=== PATIENT | female | born 1985 | race African-American/Black ===

== ENCOUNTER 2021-11-09 15:24 | Emergency (ER) | payer MEDICAID, SELFPAY ==
[2021-11-09 16:01] VITALS: BP 111/63; PULSE 76; TEMP 36.6; O2SAT 100; BMI 20.8
--- NOTE | 2021-11-09 19:39 | ED.SKABFB ---
HPI - Skin/Abscess/Foreign Bdy General Chief complaint: Skin/Abscess/Foreign Body Stated complaint: Skin grown over stitch right ear Time Seen by Provider: 11/09/21 18:21 History of Present Illness HPI narrative: This 36-year-old female comes in with a lump on the upper aspect of her right ear. She states that she had a stitch placed there to repair an injury a few months ago and since then has developed a lump causing her to wonder if the stitches still lodged in her ear and skin has grown over it. She does not have much pain in this area. She is otherwise in good health. Related Data Home Medications Medication Instructions Recorded Confirmed dextroamphetamine-amphetamine ER cap PO 09/08/21 09/08/21 15 mg 24hr capsule,extend release (Adderall XR) sertraline 100 mg tablet 100 mg PO 09/08/21 09/08/21 Previous Rx's Medication Instructions Recorded doxycycline hyclate 100 mg tablet 200 mg PO ONCE #2 tabs 09/08/21 triamcinolone acetonide 0.1 % 1 applic topical BID #15 grams 11/09/21 topical cream Allergies Allergy/AdvReac Type Severity Reaction Status Date / Time No Known Drug Allergies Allergy Verified 11/09/21 16:00 Review of Systems Status of ROS: Reports: 10 or more systems reviewed and unremarkable except as noted in History and below Narrative: Constitutional: No fevers, no weight gain or loss. Eyes: No discharge. No vision changes. HENT: No congestion, no sore throat. Swelling in the right upper external here as described above. Cardiovascular: No chest pain, no palpitations. Respiratory: No shortness of breath, no wheezes, no cough. Gastrointestinal: No abdominal pain, no vomiting, no diarrhea. Genitourinary: No dysuria, no hematuria. Musculoskeletal: Normal range of motion. Skin: No rashes, no pruritis. Neurological: No dizziness, weakness, sensory change, speech change. Endo/Heme/Allergies: No bruising or bleeding. No polydipsia. Pysch: no suicidality, no anxiety, no insomnia. All other systems reviewed and are negative. PFSH PFS Social History Smoking Status: Never smoker Do you use any of these nicotine containing products: None Second hand tobacco smoke exposure: No How often do you have a drink containing alcohol: 2-4 times a month How many standard drinks containing alcohol do you have on a typical day: 3 or 4 How often do you have six or more drinks on one occasion: Less than monthly AUDIT-C Alcohol total score: 4 Non-prescribed substance use: denies use service: No Exam Narrative: Exam Narrative: Constitutional: Well-developed, well-nourished, no acute distress. HEENT: Normocephalic, atraumatic. Small round palpable swelling in the upper aspect of the right ear. This is distinctly different than the cartilaginous part of the ear. Neck: Normal range of motion. Nontender. Supple. Heart: Intact distal pulses. Lungs: No chest discomfort. No wheezes, rhonchi, or rales. Abdomen: Nontender. Back: Normal range of motion. Extremities: Normal range of motion. No injury. Skin: Intact. No rash. Warm. No erythema or pallor. Neurologic: No altered sensation. No weakness. Alert and oriented. Psychiatric: No suicidality. No anxiety or depression. No insomnia. Nursing notes and vitals signs are reviewed. Const: Vital Signs, click to edit/add: Vital Signs - 24 hr 11/09/21 16:01 Temperature 97.8 F Pulse Rate [Pulse Oximeter] 76 Blood Pressure [Ri ght Upper Arm] 111/63 Pulse Oximetry 100 Oxygen Delivery Me thod Room Air Course Vital Signs Vital signs: Initial Vital Signs Temperature 97.8 F 11/09/21 16:01 Temperature Source Temporal Artery Scan 11/09/21 16:01 Pulse Rate 76 11/09/21 16:01 Pulse Rhythm 11/09/21 16:01 Blood Pressure 111/63 11/09/21 16:01 Blood Pressure Mean 79 11/09/21 16:01 Blood Pressure Position Sitting 11/09/21 16:01 Pulse Oximetry 100 11/09/21 16:01 Oxygen Delivery Method 11/09/21 16:01 Vital Signs Temperature 97.8 F 11/09/21 16:01 Pulse Rate 76 11/09/21 16:01 Blood Pressure 111/63 11/09/21 16:01 Pulse Oximetry 100 11/09/21 16:01 Oxygen Delivery Method 11/09/21 16:01 Temperature 97.8 F 11/09/21 16:01 Pulse Rate 76 11/09/21 16:01 Blood Pressure 111/63 11/09/21 16:01 Pulse Oximetry 100 11/09/21 16:01 Oxygen Delivery Method 11/09/21 16:01 MDM - Skin/Abscess/Foreign Bdy MDM Narrative Medical decision making narrative: This patient has a swelling in her right upper ear that is about half a cm in diameter and easily palpable with a well-defined border. And there is no sign of abscess. This is not particularly tender when palpating this area. There is no erythema. The the patient states that this bothers her and sometimes causes discomfort when sleeping with the right side of her head on a pillow. I stated that it seems to feel like a caseating granuloma or some kind of inclusion cyst. She wished to have it removed if possible. I did cleanse area with alcohol and then injected 1% lidocaine with epinephrine for anesthesia. Using a 11. Blade I did open this part of her ear. There was no fluid retention or capsulated structure. Rather it was like adipose tissue possibly in reaction to her previous injury. I was able to excise some of this tissue without disturbing the ear cartilage. I closed the wound with 2 sutures using 6.0 Ethilon suture. I instructed the patient to have those 2 sutures removed in 5-7 days. It seems that this is more likely a keloid reaction or some other kind of reaction to her previous injury. I did prescribe triamcinolone cream to be applied after the sutures are removed and the wound is healed. This may help decrease the prominence of this area of her ear. If this is not successful or satisfactory I advised her to follow-up with a plastic surgeon for further evaluation and treatment. Discharge Plan Discharge Clinical Impression: Auricular cyst Patient Disposition: Home, Self-Care Condition: Stable Additional Instructions: Have sutures removed in 5-7 days. Apply triamcinolone cream to this part of your right ear after the wound is healed. Follow up with MD or specialist to further management is desired. Prescriptions: New triamcinolone acetonide 0.1 % cream 1 applic topical BID Qty: 15 0RF No Action sertraline 100 mg tablet 100 mg PO dextroamphetamine-amphetamine [Adderall XR] 15 mg capsule,extended release 24hr PO doxycycline hyclate 100 mg tablet 200 mg PO ONCE Qty: 2 0RF Follow Up/Referrals: Provider,Not a Local [Primary Care Provider] - Stand Alone Forms: [facility] Info Instructions
[2021-11-09 19:53] VITALS: BP 117/74; RESP 20; O2SAT 99
== END 2021-11-09 19:54 | disposition home or self-care (01) ==
PROVIDERS: Emergency Provider Emergency Medicine Emergency Medical Services
DX: Q18.1 Preauricular sinus and cyst (principal)
CPT/HCPCS: 10060; 99283; 99284

== ENCOUNTER 2021-11-17 17:20 | Emergency (ER) | payer MEDICAID, SELFPAY ==
[2021-11-17 17:36] VITALS: BP 114/75; PULSE 72; RESP 18; TEMP 36.2; O2SAT 100; BMI 23.4
--- NOTE | 2021-11-17 17:57 | ED.NURSE ---
Pt elects to not be seen by MD. Refusal of services signed. Pt leaves ED ambulatory, tolerates well.
--- NOTE | 2021-11-17 18:03 | PC.NURSE ---
Spoke with mom of patient. She was upset that she would get charged ED prices for the removal of the sutures. I explained that if the procedure is done in the ED, then a provider will need to assess and order the suture removal. Since ED services were used, then ED charges will be documented. Mom verbalized understanding. They opted for refusal of services. Refusal of services form was signed. Patient was given Patient advocate phone number. Patient ambulated out of ED without diffuculty.
== END 2021-11-17 18:10 | disposition left against medical advice (07) ==
LOC: ED 18:04
DX: Z53.21 Procedure and treatment not carried out due to patient leaving prior to being seen by health care provider (principal)
CPT/HCPCS: 99281

== ENCOUNTER 2022-04-26 13:04 | Outpatient (CLI) | payer MEDICAID, SELFPAY ==
--- NOTE | 2022-04-26 13:00 | CRLHL7_ITS ---
For Patients: As a result of the Century Cures Act, medical imaging exams and procedure reports are released immediately into your electronic medical record. You may view this report before your referring provider. If you have questions, please contact your health care provider. Indication: Headache. Technique: Multiplanar, multisequence MRI of the brain was performed without intravenous contrast. Comparison: None relevant available. Findings: The corpus callosum, optic chiasm, pituitary gland, clivus, brainstem and cerebellum appear intact. The craniocervical junction appears preserved. There is no restricted diffusion. No intracranial hemorrhage. The ventricles are proportionate to the cerebral sulci. The 4th ventricle appears midline. The basal cisterns appear patent. No abnormal extra-axial fluid collection identified. Single nonspecific focus of T2 FLAIR hyperintensity within the right frontal white matter. There is no intracranial mass, abnormal mass-effect or midline shift identified. Major intracranial vascular flow voids appear grossly intact. Both globes are preserved. Moderate paranasal sinus mucosal disease. Impression: 1. No acute intracranial process. 2. Single nonspecific focus of T2 FLAIR hyperintensity within the right frontal white matter. Differential considerations include sequela of migraine headaches. 3. Moderate paranasal sinus mucosal disease. Dictated by Hernando Garcia MD @ 04/26/2022 3:52:08 PM (Electronically Signed)
== END 2022-04-26 13:05 | disposition home or self-care (01) ==
PROVIDERS: PCP Family Medicine; Visit Provider Family Medicine
DX: R51.9 Headache, unspecified (principal); J32.9 Chronic sinusitis, unspecified
CPT/HCPCS: 70551

== ENCOUNTER 2022-10-02 23:56 | Emergency (ER) | payer SELFPAY ==
[2022-10-03] VITALS: BP 109/74; PULSE 96; RESP 18; TEMP 36.3; O2SAT 97; BMI 25.4
[2022-10-03] MEDS: hydrOXYzine pamoate 25 MG CAPSULE 50 MG PO (00:30)
[2022-10-03] MEDS: ONDANSETRON ODT 4 MG TAB PO (00:30)
--- NOTE | 2022-10-03 00:31 | ED_ITS ---
HPI - General Adult General Chief complaint: Nausea/Vomiting Stated complaint: Vomit Time Seen by Provider: 10/02/22 23:57 Source: patient Mode of arrival: ambulatory Limitations: no limitations History of Present Illness HPI narrative: 37-year-old female presents the emergency department after smoking marijuana and having unintended side effects. She reports that she smoked approximately 1 hour prior to arrival. After she went home, she went to take a shower and started feeling nauseated, did vomit x1. She is feeling anxious and generally weak. No focal neurological symptoms. she reports that she does smoke on a regular basis and has never had this adverse effect. She notes no breathing difficulty, no vision change, no speech deficits, no difficulty walking. She is concerned that the marijuana was laced with something. Friend accompanies her today. She has no history of seizure disorder. She denies . She has not tried other medications to help counteract her symptoms. Denies ingestion of other drugs tonight. Past medical history noted in EMR. Home medications notable for antidepressant and Adderall. No known drug allergies. Marijuana use as described above. ROS is notable for the generalized and GI symptoms as above, otherwise no specific fevers, respiratory, cardiac, neurological, skin or musculoskeletal changes. Related Data Home Medications Medication Instructions Recorded Confirmed dextroamphetamine-amphetamine ER cap PO 09/08/21 04/18/22 15 mg 24hr capsule,extend release (Adderall XR) sertraline 100 mg tablet 100 mg PO 09/08/21 04/18/22 paroxetine HCl 30 mg tablet (Paxil) 30 mg PO DAILY 10/03/22 10/03/22 Allergies Allergy/AdvReac Type Severity Reaction Status Date / Time No Known Drug Allergies Allergy Verified 04/17/22 13:10 [facility] Surgical History History of nasal polypectomy ?Z98.890 - Other specified postprocedural states (ICD-10) ?Z87.09 - Personal history of other diseases of the respiratory system (ICD- 10) Social History Smoking Status: Never smoker Do you use any of these nicotine containing products: None Second hand tobacco smoke exposure: No How often do you have a drink containing alcohol: 2-4 times a month How many standard drinks containing alcohol do you have on a typical day: 3 or 4 How often do you have six or more drinks on one occasion: Less than monthly AUDIT-C Alcohol total score: 4 Non-prescribed substance use: denies use Little interest or pleasure in doing things: several days Feeling down, depressed, or hopeless: more than half the days service: No Exam Const: Vital Signs, click to edit/add: Vital Signs - 24 hr 10/03/ 00:00 Temperature 97.4 F L Pulse Rate [Right Pulse Oximeter] 96 Respiratory Rate 18 Blood Pressure [Ri ght Upper Arm] 109/74 Pulse Oximetry 97 Oxygen Delivery Me thod Room Air Documenting provider has reviewed patient's vital signs: yes Common normals: no apparent distress General appearance: cooperative Other: Mildly anxious but excellent historian. Speaking in full sentences with no deficits. HENMT: Common normals: normocephalic and head/scalp atraumatic Head and scalp: normocephalic and atraumatic Mouth: oral and palatal mucosa normal Throat: posterior oropharynx normal Eye: Common normals: conjunctivae normal General eye: normal appearance of both eyes Conjunctiva: conjunctiva(e) normal Other: Pupils equal, normal visual gaze and tracking. Resp: Common normals: normal respiratory effort, no use of accessory muscles and clear to auscultation bilaterally Effort & inspection: able to speak in complete sentences Auscultation: clear to auscultation bilaterally Cardio: Common normals: regular rate, regular rhythm, S1 normal heart sound, S2 normal heart sound and no murmurs Rate: regular rate Rhythm: regular rhythm Heart sounds: S1 normal and S2 normal GI: Common normals: Normal to inspection, nondistended, normoactive bowel sounds present and soft to palpation Palpation: soft Other: No hepatosplenomegaly Extremity: Common normals: normal to inspection and normal capillary refill Neuro: Speech: speech normal Gait (neuro): normal gait ( observed ambulating into exam room) Motor exam: strength 5/5 throughout, no tremor noted and no movement abnormalities noted Psych: Attitude: engaged Insight: insight good Judgement: judgment good Skin: Common normals: no rashes or lesions noted General skin exam: no rashes or lesions noted Course Course Hospital Course: no evidence of respiratory suppression, neurological deficit, altered mental status. Suspect side effects from marijuana. Counseled patient that unfortunately there is no way to tell if her marijuana was laced. Limitations of drug screens unfortunately do not detect the typical culprits in her symptoms are not consistent with opiate or other potentially dangerous and respiratory suppressing medications. At over 90 minutes post ingestion now, we would be seeing the peak of these agents. Even though her experience with this drug has been unpleasant, there are no signs of any immediate threat to her health. She asks for IV fluids, I let her know that these would not be helpful as her liver and kidney simply need to process the drug. She asked for stronger antianxiety medications when I offered Vistaril and Zofran. I let her know that I am not comfortable with that. Her symptoms should ban in a few hours and even though they are uncomfortable, are not dangerous. She can reconsider her relationship with marijuana in the future based on this experience. She disappoint only accepts my offer for Vistaril and Zofran and will be discharged from the emergency department. No further monitoring will be required. Vital Signs Vital signs: Initial Vital Signs Temperature 97.4 F L 10/03/22 00:00 Temperature Source Temporal Artery Scan 10/03/22 00:00 Pulse Rate 96 10/03/22 00:00 Respiratory Rate 18 10/03/22 00:00 Blood Pressure 109/74 10/03/22 00:00 Blood Pressure Mean 85 10/03/22 00:00 Blood Pressure Position Sitting 10/03/22 00:00 Pulse Oximetry 97 10/03/22 00:00 Oxygen Delivery Method Room Air 10/03/22 00:00 Vital Signs Temperature 97.4 F L 10/03/22 00:00 Pulse Rate 96 10/03/22 00:00 Respiratory Rate 18 10/03/22 00:00 Blood Pressure 109/74 10/03/22 00:00 Pulse Oximetry 97 10/03/22 00:00 Oxygen Delivery Method Room Air 10/03/22 00:00 Temperature 97.4 F L 10/03/22 00:00 Pulse Rate 96 10/03/22 00:00 Respiratory Rate 18 10/03/22 00:00 Blood Pressure 109/74 10/03/22 00:00 Pulse Oximetry 97 10/03/22 00:00 Oxygen Delivery Method Room Air 10/03/22 00:00 Discharge Plan Discharge Clinical Impression: Drug side effects Patient Disposition: Home w/ Parent or Adult Condition: Stable Instructions: Medicinal Use of Cannabis (ED) Additional Instructions: as we discussed, there is no way to test for the common medications that marijuana can be laced with. the limitations of drug screens only look for opiates, methamphetamines, cocaine and very few other drugs. Since it has been 90 minutes since ingestion, any potential unintended drug ingestion would be showing up in your vital signs, oxygen levels and those types of things right now. You are not at risk of stopping breathing or any emergent threats to your health at this point. Unfortunately, marijuana can very significantly in concentration of not does teach see but the other chemicals that it may contain. Sometimes the effects can be mellow wing, sedating and pleasurable but sometimes they can be anxiety provoking, nauseating and over stimulating. As discussed, there is no way to test for the chemical components of the product that you smoked. For most, symptoms start to improve after 4 hours and her out of your system in 8-12 hours. Your liver and kidneys will convert and excrete the drug, no additional medications will help speed this process. To counteract the nausea and vomiting, you have been given a single dose of Zofran, a common anti nausea medication. This will last about 8 hours. You have also been given a dose of Vistaril, a common antianxiety medication. This will not have any adverse effects with any potential unintended ingestions on your part. I cannot predict your future reactions to marijuana based on this episode. If you have persistent symptoms, I would recommend making a follow-up appointment with your primary care doctor to discuss long-term management. you may return to work with no restrictions at this time. Activity Level: No Restrictions Discharge Diet: Regular Prescriptions: No Action sertraline 100 mg tablet 100 mg PO dextroamphetamine-amphetamine [Adderall XR] 15 mg capsule,extended release 24hr PO paroxetine HCl [Paxil] 30 mg tablet 30 mg PO DAILY Follow Up/Referrals: Marcelo Moser MD [Primary Care Provider] - Stand Alone Forms: [employer] Info Instructions
--- NOTE | 2022-10-03 00:48 | PC.NURSE ---
patient DC accompanied by friend/line haul driver. no further questions.
== END 2022-10-03 00:48 | disposition home or self-care (01) ==
LOC: ED 10-03 00:43
PROVIDERS: Emergency Provider Family Medicine; PCP Family Medicine
DX: R11.2 Nausea with vomiting, unspecified (principal); T40.715A Adverse effect of cannabis, initial encounter
CPT/HCPCS: 99282; 99283; A9270

== ENCOUNTER 2023-03-20 16:13 | Outpatient (CLI) | payer MEDICAID, SELFPAY | END 2023-03-20 16:14 | disposition home or self-care (01) | LOC: NFLDREF 03-22 09:13 | PROVIDERS: PCP Family Medicine; Referring Provider Family Medicine; Visit Provider Physician Assistant | DX: R30.0 Dysuria (principal); R10.9 Unspecified abdominal pain | CPT/HCPCS: 87086 ==

== ENCOUNTER 2023-10-15 03:28 | Emergency (ER) | payer MEDICAID, SELFPAY ==
[2023-10-15 03:34] VITALS: BP 119/80; PULSE 73; RESP 16; TEMP 37.1; O2SAT 98; BMI 29.2
--- NOTE | 2023-10-15 03:39 | ED_ITS ---
HPI - General Adult General Chief complaint: Abdominal Pain Stated complaint: Abdominal pain Time Seen by Provider: 10/15/23 03:39 History of Present Illness HPI narrative: Pt states she has had lower right abd pain for a week, tonight it is hard to sleep 38-year-old woman presenting to the emergency department with complaint of crampy pulsing pain in the lower right abdomen. Demonstrates that it radiates little bit into the right flank. Has been on and off over the last week. Got worse today/this evening. She has been experiencing urinary frequency. Does not endorse dysuria. She does feel that she is emptying her bladder. No fever. Incidentally has also had an itchy rash near this area of discomfort over the last couple of days. Has had chickenpox. She has been rather bloated lately. Does endorse a history of maybe some food sensitivities or allergies in this regard. No noted exposures. She does have irregular bowel movements and would tend to constipation but does not seem as though anything is particularly out of the ordinary here. Last bowel movement was yesterday. Sounds like was rather well formed. Does also note a history of ovarian cyst and was told to keep an eye on it; this was a long time ago. Is unsure when her LMP was but would be expecting her menses maybe in 2 weeks. She mentions concern of appendicitis or maybe a bowel obstruction. She has not had any nausea or experiencing vomiting. Related Data Home Medications ?Medication ?Instructions ?Recorded ?Confirmed paroxetine HCl 30 mg tablet (Paxil) 30 mg PO DAILY 10/03/22 10/03/22 Allergies Allergy/AdvReac Type Severity Reaction Status Date / Time No Known Drug Allergies Allergy Verified 10/15/23 03:36 Review of Systems Status of ROS: Reports: 6 or more systems reviewed and unremarkable except as noted in History and below PFSH PFS Surgical History History of nasal polypectomy ?Z98.890 - Other specified postprocedural states (ICD-10) ?Z87.09 - Personal history of other diseases of the respiratory system (ICD- 10) Social History Smoking Status: Never smoker Do you use any of these nicotine containing products: None Second hand tobacco smoke exposure: No How often do you have a drink containing alcohol: 2-4 times a month How many standard drinks containing alcohol do you have on a typical day: 3 or 4 How often do you have six or more drinks on one occasion: Less than monthly AUDIT-C Alcohol total score: 4 Non-prescribed substance use: marijuana (any form) Little interest or pleasure in doing things: several days Feeling down, depressed, or hopeless: more than half the days service: No Exam Narrative: Exam Narrative: Pleasant. NAD. Noted to be ambulating easily into the emergency department. She is breathing easily. Lungs appear to be clear. Heart is in regular rate and rhythm without murmur rub or gallop. Abdomen is soft, a little overweight, and not particularly tender. No mass appreciated. Normal bowel sounds. Palm sized area of irregular faint erythema in the right lower abdomen. No blistering. No lesions/rash on the back. Extremities are without edema and well-perfused. Continues to scratch at this right low abdominal rash. Const: Vital Signs, click to edit/add: Vital Signs - 24 hr 10/15/23 03:34 Temperature 98.7 F Pulse Rate [Right Pulse Oximeter] 73 Respiratory Rate 16 Blood Pressure [Ri ght Upper Arm] 119/80 Pulse Oximetry 98 Oxygen Delivery Me thod Room Air Documenting provider has reviewed patient's vital signs: yes Course Vital Signs Vital signs: Initial Vital Signs Temperature 98.7 F 10/15/23 03:34 Temperature Source Temporal Artery Scan 10/15/23 03:34 Pulse Rate 73 10/15/23 03:34 Pulse Rhythm Regular 10/15/23 03:34 Pulse Strength 3+ Normal 10/15/23 03:34 Respiratory Rate 16 10/15/23 03:34 Blood Pressure 119/80 10/15/23 03:34 Blood Pressure Mean 93 10/15/23 03:34 Blood Pressure Position Sitting 10/15/23 03:34 Pulse Oximetry 98 10/15/23 03:34 Oxygen Delivery Method Room Air 10/15/23 03:34 Vital Signs Temperature 98.7 F 10/15/23 03:34 Pulse Rate 73 10/15/23 03:34 Respiratory Rate 16 10/15/23 03:34 Blood Pressure 119/80 10/15/23 03:34 Pulse Oximetry 98 10/15/23 03:34 Oxygen Delivery Method Room Air 09/03/24 03:34 Temperature 98.7 F 10/15/23 03:34 Pulse Rate 73 10/15/23 03:34 Respiratory Rate 16 10/15/23 03:34 Blood Pressure 119/80 10/15/23 03:34 Pulse Oximetry 98 10/15/23 03:34 Oxygen Delivery Method Room Air 10/15/23 03:34 Medical Decision Making MDM Narrative Medical decision making narrative: Leading in differential would be cystitis/urinary tract infection. Does not seem to have degree of discomfort I might expect with nephrolithiasis. Could be ectopic. Could be leaking ovarian cyst though does not seem to have had at generally escalating or persistent discomfort and I typically might expect more abrupt onset. The symptoms might be early shingles particularly in light of this eruption of the rash. Constipation in differential as well however she does not feel that it is particularly out of the norm for her. Mesenteric adenitis? Urinary retention with overflow? Poor clinical story for appendicitis as per her question and does not have symptoms really of bowel obstruction. Could be compounded with some symptoms of IBS Would start with urinalysis and urine test for evaluation. Abdominal exam is rather benign. Urinalysis has 1+ leukocyte esterase 2-5 white cells on microscopic; on convincing for urinary tract infection. Culture will be pending. No growth with last similar appearing urinalysis. With these findings and rather benign abdominal exam, I proposed checking some labs for evidence other concerning processes. Otherwise I think might follow-up outpatient if symptoms continue possibly for pelvic ultrasound as well. Labs are otherwise reassuring. I did offer treatment for what might be an evolving shingles but was declined/deferred. See patient discharge plan for further discussion Medical Records Medical records reviewed: Yes I reviewed the patient's medical records Lab Data Lab results reviewed: Yes I reviewed the patient's lab results Labs: Lab Results 10/15/23 10/15/23 Range/Units 04:05 05:05 WBC 7.10 (4.50-11.00) K/uL RBC 4.78 (4.00-5.20) m/uL Hgb 14.3 (12.0-16.0) gm/dL Hct 43.2 (33.0-51.0) % MCV 90 (80-100) fL MCH 30 (26-34) pg MCHC 33 (32-36) gm/dL RDW Coeff of Sebastian 13.5 (11.5-15.5) % Plt Count 275 (140-440) K/uL Neut % (Auto) 49.7 (42.0-72.0) % Lymph % (Auto) 33.2 (20-44) % Weakley % (Auto) 8.0 (0.0-11.0) % Eos % (Auto) 8.2 H (0.0-7.0) % Baso % (Auto) 0.8 (0.0-3.0) % Neut # (Auto) 3.52 (1.7-7.0) K/uL Lymph # (Auto) 2.36 (0.90-2.90) K/uL Weakley # (Auto) 0.60 (0.00-0.90) K/UL Eos # (Auto) 0.60 H (0.00-0.50) K/uL Baso # (Auto) 0.06 (0.00-0.30) K/uL Abs Immat Gran (auto) 0.01 (0.00-0.30) K/uL Imm/Tot Granulo (auto) 0.1 % Sodium 136 (135-149) mmol/L Potassium 3.4 L (3.6-5.1) mmol/L Chloride 105 (96-114) mmol/L Carbon Dioxide 24 (20-32) mmol/L Anion Gap 7 (7-15) mEq/L BUN 9 (5-24) mg/dL Creatinine 0.5 (0.5-1.5) mg/dL Estimated Creat Clear 130.44 Estimated GFR 122 ml/min Glucose 116 H (60-115) mg/dL Calcium 9.1 (8.4-10.6) mg/dL Total Bilirubin 0.2 (0.1-1.5) mg/dL Direct Bilirubin 0.2 (0.0-0.5) mg/dL AST 28 (12-35) U/L ALT 21 (4-35) U/L Alkaline Phosphatase 72 (40-150) U/L C-Reactive Protein 1.5 H (0.5-1.0) mg/dL Total Protein 7.1 (6.0-8.3) g/dL Albumin 4.1 (3.3-5.0) g/dL Urine Color Yellow (Yellow) Urine Appearance Clear (Clear) Urine pH 5.5 (5.0-8.5) Ur Specific [place] >= 1.030 (1.000-1.030) Urine Protein Negative (Negative) Urine Glucose (UA) Negative (Negative) Urine Ketones Trace A (Negative) Urine Blood Negative (Negative) Urine Nitrite Negative (Negative) Urine Bilirubin Negative (Negative) Urine Urobilinogen 0.2 (0.2-1.0) Ur Leukocyte Esterase 1+ A (Negative) Urine RBC 0-2 (0-2) Urine WBC 2-5 (0-5) Ur Squamous Epith Cells Few (None-Few) Amorphous Sediment Moderate A (None) Urine Bacteria Few A (None) Urine HCG, Qual Negative (Negative) Discharge Plan Discharge Clinical Impression: Abdominal discomfort, Rash Patient Disposition: Home w/ Parent or Adult Condition: Stable Additional Instructions: Can take 600 mg of ibuprofen or 850 mg of acetaminophen per dose. Alternative to the ibuprofen might be up to 500 mg of naproxen 2 times daily. A urine culture will be pending here. We will call you if results require further investigation or treatment. Yes. Do keep an eye on that rash. If seems to be blistering I would have further concern of shingles and it is best to get on treatment for that sooner than later. If pain seems to be intensifying in the right lower abdomen particularly for accompanied by nausea and vomiting, I suppose that could represent appendicitis. Would be revaluated at that time. You might also otherwise consider follow-up in clinic for an ultrasound given that there was not follow-up in the past for this ovarian cyst you mentioned. It sounds as though you might benefit from regular treatment for constipation. Try to drink at least 2 L of water daily. Consider using Citrucel or MiraLax dosed in at least 8 oz of water 1-3 times daily over the course of 2 weeks. Adjust to stool consistency. Prescriptions: No Action paroxetine HCl [Paxil] 30 mg tablet 30 mg PO DAILY Follow Up/Referrals: Marcelo Moser MD [Staff Physician] - Stand Alone Forms: [facility] Info Instructions
[2023-10-15 04:13] LABS: Appearance Urine Clear (Clear); Bilirubin Urine Negative (Negative); Blood Urine Negative (Negative); Color Urine Yellow (Yellow); Glucose Urine Negative (Negative); Ketones Urine Trace (Negative); Leukocyte Esterase Urine 1+ (Negative); Nitrite Urine Negative (Negative); Protein Urine Negative (Negative); Specific Gravity Urine >= 1.030 (1.000-1.030); Urobilinogen Urine 0.2 (0.2-1.0); pH Urine 5.5 (5.0-8.5)
--- OUTSIDE RECORDS SUMMARY | 2023-10-15 04:18 | XMS_ITS | Clinical Summary ---
Author Organization [facility] Address [place], [place] [address] Care Team Providers Care Glass Forming Crew Member Name Role Phone Pcp, No Primary Care Provider Unavailabl e Allergies Active Allergy Reactions Criticality Noted Date Comments Nickel *Unknown - Follow up needed,Hives High Medications Medication Sig Dispensed Refills Start Date End Date Status Cetirizine (ZyrTEC) 10 mg cap Take 10 mg by mouth once daily if needed. Active dextroamphetamine-am phetamine (ADDERALL XR) 15 mg Extended-Release capsule Take 15 mg by mouth once daily. 12/08/2022 Active PARoxetine (PAXIL) 30 mg tablet Take 30 mg by mouth once daily. Active fluticasone (50 mcg per actuation) nasal solution (FLONASE)Indications :Headache syndrome Inhale 2 Sprays to both nostrils once daily. 16 g 04/19/2023 Active famotidine (PEPCID) 20 mg tabletIndications:Ab dominal pain, LUQ (left upper quadrant) Take 1 Tablet (20 mg) by mouth two times daily. 30 Tablet 04/19/2023 Active Active Problems No known active problems Immunizations Name Administration Dates Next Due Tdap 11/11/2018 Social History Tobacco Use Types Packs/Day Years Used Date Smoking Tobacco: Never Smokeless Tobacco: Never Tobacco Cessation:Counseling Given: Not Answered Alcohol Use Standard Drinks/Week Comments Not Currently 0 (1 standard drink = 0.6 oz pur e alcohol) Social Connections Answer Date Recorded Frequency of Communication with Friends and Fami ly 0 04/19/2023 Financial Resource Strain Answer Date R ecorded Difficulty of Paying Living Expenses 3 04/19/2023 Difficulty of Paying Living Expenses Not on file 04/19/2023 Food Insecurity Answer Date Recorded Worried About Running Out of Food in the Last Ye ar 1 04/19/2023 Transportation Needs Answer Date Record ed Lack of Transportation (Medical) 1 04/19/2023 Housing Stability Answer Date Recorded Unable to Pay for Housing in the Last Year 1 04/19/2023 Sex and Gender Information Value Date Recorded Sex Assigned at Not on file Gender Identity Not on file Sexual Orientation Not on file Obstetrics History Last Filed Vital Signs Vital Sign Reading Time Taken Comments Blood Pressure 122/82 04/19/2023 12:51 PM ARTILLERY SPECIALIST Pulse 80 04/19/2023 12:51 PM ARTILLERY SPECIALIST Temperature - - Respiratory Rate - - Oxygen Saturation 99% 04/19/2023 12:51 PM ARTILLERY SPECIALIST Inhaled Oxygen Concentration - - Weight 74.2 kg (163 lb 8 oz) 04/19/2023 12:51 PM ARTILLERY SPECIALIST Height - - Body Mass Index - - Plan of Treatment Health Maintenance Due Date Last Done Comments Depression screening for age 12+ 1996 HIV for age 15-65 02/11/1999 BMI (ht and wt on same day) for age 18+ 02/11/2002 Hepatitis C screening for ag e 18-79 02/11/2002 Pap test for age 21-65 02/11/2005 COVID-19 vaccine series (2022- season) 2023 Influenza for age 9-49 10/13/2023 Tetanus booster 11/11/2028 11/11/2018 Tdap Completed 11/11/2018 Pneumococcal series for age 6-64 Aged Out No longer eligible based on patient's age to complete this topic Care Teams Glass Forming Crew Member Relationship Specialty Start Date End Date Pcp, No . PCP - General 10/14/19
[2023-10-15 04:22] LABS: Amorphous Sediment Urine Moderate; Bacteria Urine Few; RBC Urine 0-2 (0-2); Squamous Epithelial Cell Urine Few (None-Few); Ur HCG Qualitative* Negative (Negative)
[2023-10-15 05:12] LABS: Basophils Absolute Auto 0.06 K/uL (0.00-0.30); Basophils Percent Auto 0.8 % (0.0-3.0); Eosinophils Percent Auto 8.2 % (0.0-7.0); Hematocrit 43.2 % (33.0-51.0); Hemoglobin* 14.3 gm/dL (12.0-16.0); Immature Granulocytes Abs Auto 0.01 K/uL (0.00-0.30); Immature Granulocytes Pct Auto 0.1 %; Lymphocytes Absolute Auto 2.36 K/uL (0.90-2.90); Lymphocytes Percent Auto 33.2 % (20-44); Mean Corpuscular HGB Conc 33 gm/dL (32-36); Mean Corpuscular Hemoglobin 30 pg (26-34); Mean Corpuscular Volume 90 fL (80-100); Neutrophils Absolute Auto 3.52 K/uL (1.7-7.0); Neutrophils Percent Auto 49.7 % (42.0-72.0); Platelet Count* 275 K/uL (140-440); RDW Coefficient of Variation % 13.5 % (11.5-15.5); Red Blood Count 4.78 m/uL (4.00-5.20)
[2023-10-15 05:16] LABS: Slide Review Reflex No
[2023-10-15 05:25] LABS: Albumin* 4.1 g/dL (3.3-5.0); Chloride* 105 mmol/L (96-114)
[2023-10-15 05:26] LABS: Potassium* 3.4 mmol/L (3.6-5.1); Sodium* 136 mmol/L (135-149)
[2023-10-15 05:28] LABS: Creatinine* 0.5 mg/dL (0.5-1.5); Est. Creatinine Clearance* 130.44; Estimated Glomerular Filt Rate 122 ml/min
[2023-10-15 05:29] LABS: Alanine Aminotransferase* 21 U/L (4-35); Alkaline Phosphatase* 72 U/L (40-150); Anion Gap 7 mEq/L (7-15); Aspartate Amino Transferase* 28 U/L (12-35); Bilirubin Direct* 0.2 mg/dL (0.0-0.5); Bilirubin Total* 0.2 mg/dL (0.1-1.5); Blood Urea Nitrogen* 9 mg/dL (5-24); Carbon Dioxide* 24 mmol/L (20-32); Glucose* 116 mg/dL (60-115); Total Protein* 7.1 g/dL (6.0-8.3)
[2023-10-15 05:30] LABS: Calcium* 9.1 mg/dL (8.4-10.6)
[2023-10-15 05:32] LABS: C Reactive Protein* 1.5 mg/dL (0.5-1.0)
== END 2023-10-15 06:03 | disposition home or self-care (01) ==
PROVIDERS: Emergency Provider Family Medicine
DX: R10.31 Right lower quadrant pain (principal); R21 Rash and other nonspecific skin eruption
CPT/HCPCS: 36415; 80048; 80076; 81001; 81025; 85025; 86140; 87086; 99283; 99284

== ENCOUNTER 2023-12-30 | Emergency (ER) | payer MEDICAID, SELFPAY ==
[2023-12-30 00:04] VITALS: BP 105/69; PULSE 78; RESP 16; TEMP 37.1; O2SAT 96; BMI 30.9
--- OUTSIDE RECORDS SUMMARY | 2023-12-30 00:51 | XMS_ITS | Clinical Summary ---
Author Organization [facility] Address [place], [place] [address] Care Team Providers Care Lung Splitter Name Role Phone Pcp, No Primary Care [...] e alcohol) Social Connections Answer Date Recorded Do you often feel lonely or isolated from those around you? 0 04/19/2023 Financial Resource Strain Answer Date R ecorded Difficulty of Paying Living Expenses 3 04/19/2023 Difficulty of Paying Living Expenses Not on file 04/19/2023 Food Insecurity Answer Date Recorded Do you worry your food will run out before you are able to buy more? 1 04/19/2023 Transportation Needs Answer Date Record ed Does lack of transportation keep you from medica l appointments? 1 04/19/2023 Does lack of transportation keep you from work, meetings or getting things that you need? 1 04/19/2023 Housing Stability Answer Date Recorded What is your housing situation today? 1 04/19/2023 Sex and Gender Information Value Date Recorded Sex Assigned at Not on file Gender Identity Not on file Sexual Orientation Not on file Obstetrics History Last Filed Vital Signs Vital Sign Reading Time Taken Comments Blood Pressure 122/82 04/19/2023 12:51 PM MILITARY ANALYST Pulse 80 04/19/2023 12:51 PM MILITARY ANALYST Temperature - - Respiratory Rate - - Oxygen Saturation 99% 04/19/2023 12:51 PM MILITARY ANALYST Inhaled Oxygen Concentration - - Weight 74.2 kg (163 lb 8 oz) 04/19/2023 12:51 PM MILITARY ANALYST Height - - Body Mass Index - - Plan of Treatment Health Maintenance Due Date Last Done Comments Depression screening for age 12+ 1996 HIV for age 15-65 02/11/1999 BMI (ht and wt on same day) for age 18+ 02/11/2002 Hepatitis C screening for ag e 18-79 02/11/2002 Pap test for age 21-65 02/11/2005 COVID-19 vaccine series (2023- season) 2023 Influenza for age 9-49 10/13/2023 Tetanus booster 11/11/2028 11/11/2018 Tdap Completed 11/11/2018 Pneumococcal series for age 6-64 Aged Out No longer eligible based on patient's age to complete this topic Care Teams Lung Splitter Relationship Specialty Start Date End Date Pcp, No . PCP - General 10/14/19
[2023-12-30] MEDS: diphenhydrAMINE 50 MG/ML inj IM (00:59)
--- NOTE | 2023-12-30 01:35 | ED.GENADULT ---
HPI - General Adult General Date Seen: 12/30/23 Chief complaint: Unspecified Complaint, Adult Stated complaint: restless, possible serotonin syndrom Time Seen by Provider: 12/30/23 00:26 Source: patient, RN notes reviewed and old records reviewed Mode of arrival: ambulatory Limitations: no limitations History of Present Illness HPI narrative: Patient is a 38-year-old woman with a history of depression and anxiety, current medications include Paxil and Brexpiprazole. She is here because she has been feeling restless the past couple of days, like she just can not sit still. She was worried about possible serotonin syndrome. She initially told me that she increased her medication doses on her own, she does have a psychiatrist who prescribes, but said she felt like her anxiety was not well controlled so she increased her Paxil from 20-40 mg and her Rexulta from 1 mg to 2 mg. This is the point at which her symptoms started. She has not had any fevers, muscle stiffness or pain, involuntary movements. She has been able to sleep, but says when she is awake she just feels restless. Initially she told me she made these changes on her own, subsequently she told me that she made these changes with the approval of her psychiatrist, and then when she started to feel restless she just stopped taking both medications completely a couple of days ago. Denies other substances. Related Data Home Medications ?Medication ?Instructions ?Recorded ?Confirmed paroxetine HCl 30 mg tablet (Paxil) 30 mg PO DAILY 10/03/22 12/30/23 brexpiprazole 2 mg tablet (Rexulti) 2 mg PO DAILY 12/30/23 12/30/23 Allergies Allergy/AdvReac Type Severity Reaction Status Date / Time No Known Drug Allergies Allergy Verified 10/15/23 03:36 Review of Systems Status of ROS: Reports: 6 or more systems reviewed and unremarkable except as noted in History and below [facility] Surgical History History of nasal polypectomy ?Z98.890 - Other specified postprocedural states (ICD-10) ?Z87.09 - Personal history of other diseases of the respiratory system (ICD-10) Social History Smoking Status: Never smoker Do you use any of these nicotine containing products: None Second hand tobacco smoke exposure: No How often do you have a drink containing alcohol: 2-4 times a month How many standard drinks containing alcohol do you have on a typical day: 3 or 4 How often do you have six or more drinks on one occasion: Less than monthly AUDIT-C Alcohol total score: 4 Non-prescribed substance use: marijuana (any form) service: No Exam Narrative: Exam Narrative: Vital signs reviewed and are normal, she was resting quietly in the bed when I walked into the room. In general, and alert, nontoxic woman, conversant, cooperative. Head: Normocephalic, atraumatic. Eyes: Pupils are equal, midpoint, reactive. Extraocular movements are full. ENT: Mucous membranes are moist. Neck: Supple. Heart: Regular rate and rhythm without murmur. Lungs: Clear, no increased work of breathing. Abdomen: Soft. Nontender to palpation. Extremities: No edema, pulses intact. Neurologic: Speech is fluid, face symmetric. No clonus, normal reflexes. Affect: Normal. Const: Vital Signs, click to edit/add: Vital Signs - 24 hr 12/30/23 00:04 Temperature 98.7 F Pulse Rate [Pulse Oximeter] 78 Respiratory Rate 16 Blood Pressure [Ri ght Upper Arm] 105/69 Pulse Oximetry 96 Oxygen Delivery Me thod Room Air Documenting provider has reviewed patient's vital signs: yes Course Course ED Course: After speaking with her and examining her, discussed that I do not think this represents serotonin syndrome. She may well be having some akathisia related to increasing the dose of her Rexulta. Overall, discussed that it is generally bad idea to discontinue medications for mental health cold turkey. I recommended that she resume her medicines at her previous doses and then discuss further with her psychiatrist tomorrow. Did give her a dose of Benadryl here to try and help her feel little bit better and get some rest. Return any time for significant worsening, otherwise psychiatric follow-up to discuss medications and possible side effects. Vital Signs Vital signs: Initial Vital Signs Temperature 98.7 F 12/30/23 00:04 Temperature Source Temporal Artery Scan 12/30/23 00:04 Pulse Rate 78 12/30/23 00:04 Respiratory Rate 16 12/30/23 00:04 Blood Pressure 105/69 12/30/23 00:04 Blood Pressure Mean 81 12/30/23 00:04 Blood Pressure Position Sitting 12/30/23 00:04 Pulse Oximetry 96 12/30/23 00:04 Oxygen Delivery Method Room Air 12/30/23 00:04 Vital Signs Temperature 98.7 F 12/30/23 00:04 Pulse Rate 78 12/30/23 00:04 Respiratory Rate 16 12/30/23 00:04 Blood Pressure 105/69 12/30/23 00:04 Pulse Oximetry 96 12/30/23 00:04 Oxygen Delivery Method Room Air 12/30/23 00:04 Temperature 98.7 F 12/30/23 00:04 Pulse Rate 78 12/30/23 00:04 Respiratory Rate 16 12/30/23 00:04 Blood Pressure 105/69 12/30/23 00:04 Pulse Oximetry 96 12/30/23 00:04 Oxygen Delivery Method Room Air 12/30/23 00:04 Medications Administered Medications: Discontinued Medications Generic Name Dose Route Start Last Admin Trade Name Keaganq PRN Reason Stop Dose Admin Diphenhydramine HCl 50 mg 12/30/23 00:42 12/30/23 00:59 Diphenhydramine 50 Mg/Ml Inj IM 12/30/23 00:43 50 mg ONCE ONE Administration Discharge Plan Discharge Clinical Impression: Akathisia Patient Disposition: Home, Self-Care Condition: Stable Additional Instructions: I would go back to taking your medications I your previous doses of 20 mg and 1 mg. Please call your psychiatrist tomorrow to discuss. You can take Benadryl at home as well if needed for persistent symptoms. Return as needed for worsening or new symptoms. Activity Level: No Restrictions Discharge Diet: Regular Prescriptions: No Action Rexulti 2 mg tablet 2 mg PO DAILY paroxetine HCl [Paxil] 30 mg tablet 30 mg PO DAILY Follow Up/Referrals: Provider,Not a Local [Primary Care Provider] - Stand Alone Forms: [employer] Info Instructions
== END 2023-12-30 01:00 | disposition home or self-care (01) ==
LOC: ED 00:49
PROVIDERS: Emergency Provider Emergency Medicine
DX: G25.71 Drug induced akathisia (principal)
CPT/HCPCS: 96372; 99283; 99284; J1200

== ENCOUNTER 2023-12-30 22:18 | Emergency (ER) | payer MEDICAID, SELFPAY ==
[2023-12-30 22:21] VITALS: BP 123/81; PULSE 74; RESP 16; TEMP 36.9; O2SAT 99; BMI 30.9
--- NOTE | 2023-12-30 22:29 | CRLHL7_ITS ---
For Patients: As a result of the Century Cures Act, medical imaging exams and procedure reports are released immediately into your electronic medical record. You may view this report before your referring provider. If you have questions, please contact your health care provider. INDICATION: Right calf pain TECHNIQUE: Ultrasound venous duplex lower right extremity. Compression venous exam was performed using sunshine-scale, color Doppler, and spectral Doppler analysis. COMPARISON: None. FINDINGS: Deep veins: Sonographic imaging demonstrates the right common femoral, deep femoral, superficial femoral, popliteal, posterior tibial and the contralateral right common femoral veins to be fully compressible with normal color Doppler blood flow. Superficial veins: Greater saphenous vein is fully compressible. No popliteal cyst. IMPRESSION: Normal right lower extremity venous ultrasound, no sign of deep venous thrombosis. Dictated by Rachel Phelps MD @ 12/30/2023 11:56:28 PM (Electronically Signed)
--- NOTE | 2023-12-30 22:51 | ED_ITS ---
HPI - General Adult General Date Seen: 12/30/23 Chief complaint: Extremity Pain/Injury, Lower Stated complaint: pain in right calf Time Seen by Provider: 12/30/23 22:39 History of Present Illness HPI narrative: 38-year-old female presenting to the ER today with concern for pain on the lateral aspect of her right calf, just distal to her knee. Review of medical record shows that she was actually here in the ER last night on the overnight shift with concern for depression anxiety. According to the ER notes she had been feeling restless for the past few days and was worried about possible certain syndrome. 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 She does do a lot of walking and bending and twisting with her job. She notes that a few days ago, maybe 3 days ago she started having some intermittent pain located in her posterior calf just below the popliteal fossa a little bit on the outside. Initially was coming and going. It has been more persistent today. She was at home tonight and it was still hurting. She began to worry that she might have a DVT so she asked her family to bring her here to the ER tonight. She has not had any swelling of the leg. No redness. She does have a chronic oval-shaped circumferential rash on the right anterior vu which is been there for a couple of years. The posterior pain is acute over the past couple of days. She does not think the rash is related to the pain. She does not have any known injury. No fall or twisting to her knee. She is confident that her knee is not broken. She has not had any redness or warmth to the skin. No fever. she does not take control pills. No recent travel or immobilization. No history of DVT or PE. No surgery. No pain radiating distally down her posterior Achilles or down into her ankle or foot. No left knee or calf pain. No pain in her anterior knee. No pain in her quad her hamstring. No hip pain. No associated low back pain or any numbness or pain radiating down her leg or to her foot. Related Data Home Medications ?Medication ?Instructions ?Recorded ?Confirmed paroxetine HCl 30 mg tablet (Paxil) 30 mg PO DAILY 10/03/22 12/30/23 brexpiprazole 2 mg tablet (Rexulti) 2 mg PO DAILY 12/30/23 12/30/23 Allergies Allergy/AdvReac Type Severity Reaction Status Date / Time nickel Allergy Mild Rash Verified 12/30/23 22:26 [facility] Surgical History History of nasal polypectomy ?Z98.890 - Other specified postprocedural states (ICD-10) ?Z87.09 - Personal history of other diseases of the respiratory system (ICD- 10) Social History Smoking Status: Never smoker Do you use any of these nicotine containing products: None Second hand tobacco smoke exposure: No How often do you have a drink containing alcohol: 2-4 times a month How many standard drinks containing alcohol do you have on a typical day: 3 or 4 How often do you have six or more drinks on one occasion: Less than monthly AUDIT-C Alcohol total score: 4 Non-prescribed substance use: marijuana (any form) service: No Exam Narrative: Exam Narrative: Constitutional: Appears well-developed and well-nourished. Alert. Conversant. Non toxic. HENT: Head: Atraumatic. Nose: Nose normal. Mouth/Throat: Oral mucosa is clear and moist. no trismus. Eyes: Conjunctivae normal. EOM normal. Pupils equal, round, and reactive to light. No scleral icterus. Neck: Normal range of motion. Neck supple. No tracheal deviation present. Cardiovascular: Normal rate, regular rhythm. Symmetric PT artery pulses normal cap refill Pulmonary/Chest: Effort normal. No stridor. No respiratory distress. No wheezes. No rales. No rhonchi . No tenderness. Musculoskeletal: Normal except for right lower extremity. No back tenderness. Pelvis is stable and hips are nontender Right lower extremity: Hip, quad, hamstring, femur are nontender. Knee: Normal inspection. No anterior tenderness over the patella, tibia, proximal fibula. Normal range of motion. No ligamentous laxity of the ACL, PCL, LCL, MCL. No obvious clicking or locking of the knee during range of motion. She is mildly tender in the popliteal fossa. No palpable swelling or fluctuance there. Mild tenderness on the proximal right gastroc more over the lateral head than medial. No tenderness over the anterior tibia. Gastroc is soft. No evidence for compartment syndrome. Distally her Achilles, ankle, foot are nontender. Strong DP pulse. She does have a roughly 12 x 6 cm oval-shaped plaque rash on her right anterior vu which has been there for couple of years. No surrounding erythema. Lymph: No cervical adenopathy. Neurological: Alert and oriented to person, place, and time. Normal strength. CN II-VII intact. No sensory deficit. GCS eye subscore is 4. GCS verbal subscore is 5. GCS motor subscore is 6. Normal coordination Sensory: Normal light touch sensation bilaterally on the anteromedial thigh (L3), medial malleolus (L4), dorsal first web space (L5), lateral malleolus (S1). Strength: 5/5 strength hip flexors (L3) on the rig ht and left 5/5 strength in the quadriceps (L4) on t he right and left 5/5 strength in the tibialis anterior 5/5 strength in the EHL (L5) on the righ t and left 5/5 strength in the gastrocnemius (S1) o n the right and left 5/5 strength in the hamstring on the rig ht and left Negative straight leg raise Skin: Skin is warm and dry. No rash noted. No pallor. Normal capillary refill. Psychiatric: Polite. Normal mood. Normal affect. Const: Vital Signs, click to edit/add: Vital Signs - 24 hr 12/30/23 22:21 Temperature 98.4 F Pulse Rate [Pulse Oximeter] 74 Respiratory Rate 16 Blood Pressure [Ri ght Upper Arm] 123/81 Pulse Oximetry 99 Oxygen Delivery Me thod Room Air Course Vital Signs Vital signs: Initial Vital Signs Temperature 98.4 F 12/30/23 22:21 Temperature Source Temporal Artery Scan 12/30/23 22:21 Pulse Rate 74 12/30/23 22:21 Respiratory Rate 16 12/30/23 22:21 Blood Pressure 123/81 12/30/23 22:21 Blood Pressure Mean 95 12/30/23 22:21 Blood Pressure Position Sitting 12/30/23 22:21 Pulse Oximetry 99 12/30/23 22:21 Oxygen Delivery Method Room Air 12/30/23 22:21 Vital Signs Temperature 98.4 F 12/30/23 22:21 Pulse Rate 74 12/30/23 22:21 Respiratory Rate 16 12/30/23 22:21 Blood Pressure 123/81 12/30/23 22:21 Pulse Oximetry 99 12/30/23 22:21 Oxygen Delivery Method Room Air 12/30/23 22:21 Temperature 98.4 F 12/30/23 22:21 Pulse Rate 74 12/30/23 22:21 Respiratory Rate 16 12/30/23 22:21 Blood Pressure 123/81 12/30/23 22:21 Pulse Oximetry 99 12/30/23 22:21 Oxygen Delivery Method Room Air 12/30/23 22:21 Medical Decision Making [facility] Narrative Medical decision making narrative: Pleasant 38-year-old female presenting to the ER today with atraumatic right posterior knee and right posterior calf pain it has been getting worse for the past 3 days or his goes. She was concerned she might have a DVT (concerned based on her medical knowledge. She does not have any risk factors such as immobilization, travel, control use, or history of DVT or hypercoagulability). Ultrasound is obtained is fortunately negative for DVT. She has no recent trauma to raise concern for fracture or to her knee, tibia or fibula. There is no evidence for any infection in the skin on the posterior any ear calf. No evidence for a septic knee joint arthritis. My ligamentous exam is negative for any ligamentous laxity here. Patient is confident that her knee is not fractured and does not want x-rays tonight. I think it is reasonable to hold off. Discussed the possibility for Hopkins cyst or other soft tissue injury to the knee. Or Hopkins cyst is not seen on her ultrasound tonight but may still be present. She will need outpatient follow-up with orthopedics and may need MRI if symptoms are not improving. Precautions for return to the ER for re-evaluation were given. Questions answered. Imaging Data Ultrasound venous, right lower extremity: Attestation: I have reviewed the pertinent imaging results. My impression: Verbal report from the pyrotechnic assembler is that the study is negative for DVT. Radiologist's impression: IMPRESSION: Normal right lower extremity venous ultrasound, no sign of deep venous thrombosis. Discharge Plan Discharge Clinical Impression: Pain of right calf Patient Disposition: Home, Self-Care Condition: Stable Instructions: Leg Pain (ED) Additional Instructions: So far your workup looks good. Ultrasound is negative for DVT. As we discussed your pain could be a muscle strain or could be a Hopkins cyst from her right knee or in injury to the cartilage or meniscus of your knee. Please monitor your symptoms carefully and if you have increasing pain or swelling, come back to the ER right away to be rechecked. Otherwise, please follow-up with your regular doctor for re-evaluation within 2 or 3 days or call the [facility] to schedule an ER follow-up appointment for within 2 or 3 days. Call [phone] to schedule an appointment. Prescriptions: No Action Rexulti 2 mg tablet 2 mg PO DAILY paroxetine HCl [Paxil] 30 mg tablet 30 mg PO DAILY Follow Up/Referrals: Provider,Not a Local [Primary Care Provider] - Stand Alone Forms: Nitro PDF Info Instructions
--- OUTSIDE RECORDS SUMMARY | 2023-12-30 23:26 | XMS_ITS | Clinical Summary ---
Author Organization [facility] Address [place], [place] [address] Care Team Providers Care Rail Operations Controller Name Role Phone Pcp, No Primary Care [...] Comments Blood Pressure 122/82 04/19/2023 12:51 PM VICE PRESIDENT OF SOFTWARE ENGINEERING Pulse 80 04/19/2023 12:51 PM VICE PRESIDENT OF SOFTWARE ENGINEERING Temperature - - Respiratory Rate - - Oxygen Saturation 99% 04/19/2023 12:51 PM VICE PRESIDENT OF SOFTWARE ENGINEERING Inhaled Oxygen Concentration - - Weight 74.2 kg (163 lb 8 oz) 04/19/2023 12:51 PM VICE PRESIDENT OF SOFTWARE ENGINEERING Height - - Body Mass Index - [...] age to complete this topic Care Teams Rail Operations Controller Relationship Specialty Start Date End Date Pcp, No . PCP - General 10/14/19
[2023-12-31] VITALS: BP 122/67; PULSE 65; RESP 18; O2SAT 96
== END 2023-12-31 00:26 | disposition home or self-care (01) ==
PROVIDERS: Emergency Provider Emergency Medicine
DX: M79.661 Pain in right lower leg (principal)
CPT/HCPCS: 93971; 99283

== ENCOUNTER 2024-04-17 10:47 | Emergency (ER) | payer OTHER, SELFPAY ==
--- OUTSIDE RECORDS SUMMARY | 2024-04-17 10:50 | XMS_ITS | Clinical Summary ---
Author Organization [facility] Address [address] [place] [address] Care Team Providers Care Rn Telephone Triage Name Role Phone Solomon Glasgow MD Primary Care Provider [phone] Source Comments You are receiving this document as you are listed as the primary care provider,follow-up provider, or the patient has been referred to you for consultation.This is in compliance with the Medicare and[facility] EHR Incentive Program,which states Providers who transition their patient to another setting of careor provider of care or refers their patient to another provider of care shouldprovide summary care record for each transition of care or referral. [facility] Allergies Active Allergy Reactions Criticality Noted Date Comments Nickel Hives High 08/15/2018 Medications FLUoxetine (PROZAC) 10 MG capsule 03/22/2020 Active ergocalciferol (DRISDOL) 1.25 MG (57852 UT) capsuleIndicati ons:Vitamin D deficiency (HRC) Take 1 Capsule by mouth once every week. 12 Capsule 1 04/05/2020 Active ADDERALL XR 5 MG 24 hour release capsule 03/25/2020 Act tyshawn ALBUterol sulfate HFA 108 (90 Base) MCG/ACT inhaler Inhale 2 Puffs every 6 hours as needed. for wheezing 03/25/2020 Active loratadine (CLARITIN) 10 MG tablet Take 10 mg by mouth. Active omeprazole (PRILOSEC) 20 MG capsule 03/25/2020 Active clomiPHENE (CLOMID) 50 MG tablet Take 1 Tablet by mouth daily. Cycle day # 3 thru # 7 5 Tablet 2 04/12/2020 Active Active Problems No known active problems Immunizations Immunization Administration Dates Next Due Tdap 11/11/2018 Social History Tobacco Use Types Packs/Day Years Used Date Smoking Tobacco: Never Smokeless Tobacco: Never Alcohol Use Standard Drinks/Week Comments Not Currently 0 (1 standard drink = 0.6 oz pur e alcohol) PHQ-2 Answer Date Recorded PHQ-2 Score 4 12/01/2019 Comments No Sex and Gender Information Value Date Recorded Sex Assigned at Not on file Legal Sex Female 1:16 PM STACKER OPERATOR Gender Identity Not on file Sexual Orientation Not on file Last Filed Vital Signs Vital Sign Reading Time Taken Comments Blood Pressure 113/75 04/12/2020 2:52 PM STACKER OPERATOR Pulse 101 04/12/2020 2:52 PM STACKER OPERATOR Temperature - - Respiratory Rate - - Oxygen Saturation - - Inhaled Oxygen Concentration - - Weight 81.2 kg (179 lb) 04/12/2020 2:52 PM STACKER OPERATOR Height 167.6 cm (5' 6) 04/04/2020 2:32 PM STACKER OPERATOR Body Mass Index 28.89 04/04/2020 2:32 PM STACKER OPERATOR Plan of Treatment Health Maintenance Due Date Last Done Comments Cervical Cancer Screening Due 1985 Mammogram 1985 Adult Preventive Visit 02/11/2002 HepB (1) 02/11/2003 COVID-19 Vaccine ( - 2023-2 5 season) 2023 Influenza (#1) 2023 DTaP/Tdap/Td (2 - Tdap) 11/11/2028 11/11/2018 Zoster/Shingles (1 of 2) 02/11/2034 HIV Screening (Preventive Services) Completed 06/25/2017 Hep C Screening (Preventive Services) Completed 06/25/2017 HPV Vaccine Aged Out No longer eligi ble based on patient's age to complete this topic HepA Aged Out No longer eligi ble based on patient's age to complete this topic Hib Aged Out No longer eligi ble based on patient's age to complete this topic IPV (Polio) Aged Out No longer eligi ble based on patient's age to complete this topic MCV4 Aged Out No longer eligi ble based on patient's age to complete this topic Meningococcal B Aged Out No longer el igible based on patient's age to complete this topic Pneumococcal Aged Out No longer eligi ble based on patient's age to complete this topic Procedures Procedure Name Priority Date/Time Associated Diagnosis Comments HIV 1/2 AG/AB 4TH GEN Routine 06/25/2017 3:34 PM CDT Exposure to blood or body fluid Work related injury HEPATITIS C ANTIBODY, WITH REFLEX Routine 06/25/2017 3:34 PM CDT Exposure to blood or body fluid Work related injury from Last 3 Months or Most Recently Relevant to Health Maintenance Results * HIV 1/2 Ag/Ab 4th Generation (06/25/2017 3:34 PM CDT) HIV 1/2 AG/AB 4thGEN Negative (Non Reactive) [facility] Comment:HIV-1 p24 Ag and HIV -1/HIV-2 Ab not detected. 06/25/2017 3:34 PM CDT 06/25/2017 3:35 PM CDT Narrative [facility] - 06/25/2017 7:31 PM CDT Performed at [facility], [address] [place] [address] us Argelia Diehl MD LAB_1 Final Result Performing Organization Address [facility] de Phone Number [facility] [phone] * HEPATITIS C AB [[id number]] (06/25/2017 3:34 PM CDT) Pathologist [facility] Anti-HCV Negative (Non Reactive) [facility] Comment: Antibodies to HCV not detected. Does not exclude the possibility of exposure to HCV. 06/25/2017 3:34 PM CDT 06/25/2017 3:35 PM CDT Narrative [facility] - 06/25/2017 7:27 PM CDT Performed at [facility], [address] [place] [id number] us Argelia Diehl MD LAB_1 Final Result Performing Organization Address [facility] Co de Phone Number [facility] [phone] from Last 3 Months or Most Recently Relevant to Health Maintenance Insurance * Guarantor: Phoebe Sherwood Account Type Relation to Patient Date of Phone Billing Address Personal/Family Self 1985 RET[address]ED [id number] [place] [address] * Guarantor: Phoebe Sherwood Account Type Relation to Patient Date of Phone Billing Address Personal/Family Self 1985 [address] [id number] [address] [place] [address] CARE M[employer] * Guarantor: Phoebe Sherwood Account Type Relation to Patient Date of Phone Billing Address Workers Comp Self 1985 RETURNED [address]IL [id number] [address] [place] [address] MISC INS WORK COMP WC Care Teams Rn Telephone Triage Relationship Specialty Start Date End Date Solomon Glasgow MD [address] [place] [address] PCP - General Internal Medicine 11/26/19
--- OUTSIDE RECORDS SUMMARY | 2024-04-17 10:51 | XMS_ITS | Encounter Summary ---
Author Organization [facility] Address [address] [place] [address] Care Team Providers Care Denier Control Operator Name Role Phone Noe Amin MD Primary Care Provider + [phone] Noe Amin MD Unavailable [phone] Maude Rendon NP Unavailable [phone] Noe Amin MD Unavailable [phone] [facility] Unavailable Encounter Details Date Type Department Care Team (Latest Contact Info) Description 09/16/2018 Historic Results Social History Tobacco Use Types Packs/Day Years Used Date Smoking Tobacco: Never Assessed Comments Unknown Sex and Gender Information Value Date Recorded Sex Assigned at Not on file Legal Sex Female 9:49 PM CDT Gender Identity Not on file Sexual Orientation Not on file documented as of this encounter Plan of Treatment Not on file documented as of this encounter Visit Diagnoses Not on filedocumented in this encounter Care Teams Denier Control Operator Relationship Specialty Start Date End Date Noe Amin MD PCP - General Family Practice 05/03/17 12/11/21 Noe Amin MD Assigned PCP 07/27/20 06/03/22 Maude Rendon NP [address] [place] [address] Assigned PCP 06/04/22 08/03/22 Noe Amin MD [address] [facility] [address] [facility] [place] [address] Assigned PCP 08/04/22 03/06/23 [facility] Mimi [address] [address] Assigned PCP 03/07/23 01/03/24 documented as of this encounter
--- OUTSIDE RECORDS SUMMARY | 2024-04-17 10:51 | XMS_ITS | Encounter Summary ---
Author Organization [facility] Address [address] [place] [address] Care Team Providers Care [facility] Products Assembler Name Role Phone Noe Amin MD Primary Care Provider + [phone] Noe Amin MD Unavailable [phone] Maude Rendon SKIP HOIST OPERATOR Unavailable [phone] Noe Amin MD Unavailable [phone] Clinic - [facility] Unavailable Encounter Details Date Type Department Care Team (Late st Contact Info) Description 07/27/2019 Records - [address] [address] Noe Amin MD [address] [place] [id number] Social History Tobacco Use Types Packs/Day Years Used Date Smoking Tobacco: Never Assessed Comments Unknown Sex and Gender Information Value Date Recorded Sex Assigned at Not on file Legal Sex Female 9:49 PM CDT Gender Identity Not on file Sexual Orientation Not on file documented as of this encounter Progress Notes * Noe Amin MD - 07/27/2019 4:40 PM CDT This encounter was created but patient was not seen due to phone /video issues. documented in this encounter Plan of Treatment Not on file documented as of this encounter Visit Diagnoses Not on filedocumented in this encounter Care Teams [facility] Products Assembler Relationship Specialty Start Date End Date Noe Amin MD PCP - General Family Practice 05/03/17 12/11/21 Noe Amin MD Assigned PCP 07/27/20 06/03/22 Maude Rendon NP [address] [facility] [place] [address] Assigned PCP 06/04/22 08/03/22 Noe Amin MD [address] [place] [address] Assigned PCP 08/04/22 03/06/23 [facility] - [address] [address] Assigned PCP 03/07/23 01/03/24 documented as of this encounter
--- OUTSIDE RECORDS SUMMARY | 2024-04-17 10:51 | XMS_ITS | Clinical Summary ---
Author Organization [place] Address [address] [facility] [place] [address] Care Team Providers Care Tourist Escort Name Role Phone Unavailable Primary Care Provider Unavailabl e Allergies Active Allergy Reactions Criticality Noted Date Comments Nickel Unknown 08/15/2018 Medications fluticasone (FLONASE) 50 MCG/ACT nasal spray Adrian 1-2 sprays into both nostrils daily 1 Bottle 11 6 Active PARoxetine (PAXIL) 30 MG tabletIndication s:Anxiety disorder, unspecified type Take 1 tablet (30 mg) by mouth daily 90 tablet 2 1 Active fexofenadine (JOSE) 180 MG tabletIndication s:Seasonal allergic rhinitis, unspecified trigger Take 1 tablet (180 mg) by mouth daily 90 tablet 1 1 Active valACYclovir (VALTREX) 500 MG tablet 1 Active sertraline (ZOLOFT) 50 MG tabletIndication s:Anxiety disorder, unspecified type Take 1 tablet (50 mg) by mouth daily 30 tablet 1 1 Active Active Problems Problem Noted Date Diagnosed Date Asthma 03/25/2020 Seasonal allergic rhinitis 03/28/2017 Immunizations Name Administration Dates Next Due TDAP (Adacel,Boostrix) 11/11/2018 Family History Relation Status Comments Brother Alive Father Alive Mother Alive Sister Alive Social History Tobacco Use Types Packs/Day Years Used Date Smoking Tobacco: Never Smokeless Tobacco: Never Alcohol Use Standard Drinks/Week Comments No 0 (1 standard drink = 0.6 oz pur e alcohol) Adolescent Education Answer Date Record ed Getting School Help Needed Not on file 11/02 Comments No Sex and Gender Information Value Date Recorded Sex Assigned at Not on file Legal Sex Female 9:49 PM CDT Gender Identity Not on file Sexual Orientation Not on file Last Filed Vital Signs Vital Sign Reading Time Taken Comments Blood Pressure 110/70 10/03/2021 6:40 PM CDT Pulse 99 10/03/2021 6:40 PM CDT Temperature 37 C (98.6 F) 10/03/2021 6:40 PM CDT Respiratory Rate 16 09/27/2021 9:42 PM CDT Oxygen Saturation 100% 10/03/2021 6:40 PM CDT Inhaled Oxygen Concentration - - Weight 72.1 kg (159 lb) 10/03/2021 6:40 PM CDT Height 162.6 cm (5' 4) 11/30/2020 1:38 PM CDT Body Mass Index 27.29 11/30/2020 1:38 PM CDT Plan of Treatment Health Maintenance Due Date Last Done Comments ADVANCE CARE PLANNING 1984 ANNUAL REVIEW OF HM ORDERS 1984 ASTHMA ACTION PLAN 1984 ASTHMA CONTROL TEST 1984 MAMMO SCREENING 1984 HEPATITIS C SCREENING 02/11/2002 HEPATITIS B IMMUNIZATION (1 of 3 - 19+ 3-dose series) 02/11/2003 Pneumococcal Vaccine: Pediatrics (0 to 5 Years) and At-Risk Patients (6 to 49 Years) (1 of 2 - PCV) 02/11/2003 YEARLY PREVENTIVE VISIT 05/03/2018 05/04/19 18, 05/03/2017 GLUCOSE 06/14/2022 06/15/2019, 05/03/2017 COVID-19 Vaccine (1 - 2023-2 5 season) 2023 INFLUENZA VACCINE (#1) 2023 PHQ-2 (once per calendar year) 2024 HPV TEST 12/29/2026 12/29/2021 LIPID 12/29/2026 12/29/2021, 05/03/2017 PAP 12/29/2026 12/29/2021, 2016 DTAP/TDAP/TD IMMUNIZATION (2 - Td or Tdap) 11/11/2028 11/11/2018 ZOSTER IMMUNIZATION (1 of 2) 02/11/2034 HIV SCREENING Completed 01/16/2019 HPV IMMUNIZATION Aged Out No longer e ligible based on patient's age to complete this topic MENINGITIS IMMUNIZATION Aged Out No l onger eligible based on patient's age to complete this topic Medical Devices Implanted Type Area Firebrick And Refractory Tile Repairer Device Identifier Shelf Expiration Date Model / Serial / Lot Imp Sinus Propel Mometasone Fuorate 370mccg 23mm [id number] Implanted:Qty: 1 on 08/19/2018 Other Left: Nose INTERSECT ENT 08/31/2019 [id number] / / [id number] Imp Sinus Propel Mometasone Fuorate 370mccg 23mm [id number] Implanted:Qty: 1 on 08/19/2018 Other Right: Nose INTERSECT ENT 08/31/2019 [id number] / / [id number] Procedures Procedure Name Priority Date/Time Associated Diagnosis Comments LIPID PROFILE Routine 12/29/2021 4:11 PM DIRECTOR OF MEDICAL STAFF SERVICES Encounter for screening for lipoid disorders GYNECOLOGIC CYTOLOGY Routine 12/29/2021 4:07 PM DIRECTOR OF MEDICAL STAFF SERVICES Encounter for screening for malignant neoplasm of cervix HPV HIGH RISK TYPES DNA CERVICAL Routine 12/29/2021 4:07 PM DIRECTOR OF MEDICAL STAFF SERVICES Encounter for screening for malignant neoplasm of cervix BASIC METABOLIC PANEL STAT 06/15/2019 6:40 PM CDT HIV ANTIGEN ANTIBODY COMBO STAT 01/16/2019 5:24 PM DIRECTOR OF MEDICAL STAFF SERVICES from Last 3 Months or Most Recently Relevant to Health Maintenance Results * (ABNORMAL) Lipid Profile (12/29/2021 4:11 PM DIRECTOR OF MEDICAL STAFF SERVICES) Cholesterol 207(H) <200 mg/dL 12/30/2021 1:06 AM DIRECTOR OF MEDICAL STAFF SERVICES [facility] Triglycerides 53 <150 mg/dL 12/30/2021 1:06 AM DIRECTOR OF MEDICAL STAFF SERVICES [facility] Direct Measure HDL 52 >=50 mg/dL 12/30/2021 1:06 AM DIRECTOR OF MEDICAL STAFF SERVICES [facility] LDL Cholesterol Calculated 144(H) <=100 mg/dL 12/30/2021 1:06 AM DIRECTOR OF MEDICAL STAFF SERVICES [facility] Non HDL Cholesterol 155(H) <130 mg/dL 12/30/2021 1:06 AM DIRECTOR OF MEDICAL STAFF SERVICES [facility] Blood STRUCTURE OF RIGHT UPPER LIMB / Unknown Client Draw / Unknown 12/29/2021 4:11 PM DIRECTOR OF MEDICAL STAFF SERVICES 12/29/2021 8:01 PM DIRECTOR OF MEDICAL STAFF SERVICES Narrative [facility] - 12/30/2021 1:06 AM DIRECTOR OF MEDICAL STAFF SERVICES Cholesterol Desirable: <200 mg/dL Triglycerides Normal: Less than 150 mg/dL Borderline High: 150-199 mg/dL High: 200-499 mg/dL Very High: Greater than or equal to 500 mg/dL Direct Measure HDL Female: Greater than or equal to 50 mg/dL Male: Greater than or equal to 40 mg/dL LDL Cholesterol Desirable: <100mg/dL Above Desirable: 100-129 mg/dL Borderline High: 130-159 mg/dL High: 160-189 mg/dL Very High: >= 190 mg/dL Non HDL Cholesterol Desirable: 130 mg/dL Above Desirable: 130-159 mg/dL Borderline High: 160-189 mg/dL High: 190-219 mg/dL Very High: Greater than or equal to 220 mg/dL us Vladimir Nunes PA-C LAB - BLOOD ORDERABLES Final Result LABORATORY [facility] [address] [facility], [address] [place] [address], [facility] [phone] * (ABNORMAL) Gynecologic Cytology (PAP) (12/29/2021 4:07 PM DIRECTOR OF MEDICAL STAFF SERVICES) Interpretation Atypical squamous cells of undetermined significance (ASC-US)(A) 01/03/2022 2:44 PM DIRECTOR OF MEDICAL STAFF SERVICES LABORATORY Comment Papanicolaou Test Limitations: Cervical cytology is a screening test with limited sensitivity, and regular screening is critical for cancer prevention. Pap tests are primarily effective for the diagnosis/preven tion of squamous cell carcinoma, not adenocarcinoma or other cancers. 01/03/2022 2:44 PM DIRECTOR OF MEDICAL STAFF SERVICES LABORATORY Specimen Adequacy Satisfactory for evaluation, endocervical/tra nsformation zone component present 01/03/2022 2:44 PM DIRECTOR OF MEDICAL STAFF SERVICES [facility] Clinical Information none 01/03/2022 2:44 PM DIRECTOR OF MEDICAL STAFF SERVICES [facility] LMP/Menopause Date 12/08/2021 01/03/2022 2:44 PM DIRECTOR OF MEDICAL STAFF SERVICES [facility] Reflex Testing Yes regardless of result 01/03/2022 2:44 PM DIRECTOR OF MEDICAL STAFF SERVICES [facility] Previous Abnormal? Yes 01/03/2022 2:44 PM DIRECTOR OF MEDICAL STAFF SERVICES [facility] Previous Abnormal Diagnosis 12/12/2020 01/03/2022 2:44 PM DIRECTOR OF MEDICAL STAFF SERVICES SPECIAL[facility] Performing Labs The technical component of this testing was completed at [facility] 01/03/2022 2:44 PM DIRECTOR OF MEDICAL STAFF SERVICES SPECIAL[facility] LAB[facility] Brushing CERVIX UTERI STRUCTURE / Unknown 12/29/2021 4:07 PM DIRECTOR OF MEDICAL STAFF SERVICES 01/01/2022 2:18 PM DIRECTOR OF MEDICAL STAFF SERVICES us Vladimir CARRILLO Final R esult [facility] [address] [facility] Lab (1st floor, no room number) [place] [address], [facility] [phone] SPECIALTY LABS Specialty Lab [address] [facility], [address] [place] [address], [facility] [phone] * HPV High Risk Types DNA Cervical (12/29/2021 4:07 PM DIRECTOR OF MEDICAL STAFF SERVICES) Other HR HPV Negative Negative 01/05/2022 2:29 PM DIRECTOR OF MEDICAL STAFF SERVICES [facility]NOST[facility] HPV16 DNA Negative Negative 01/05/2022 2:29 PM DIRECTOR OF MEDICAL STAFF SERVICES [facility] HPV18 DNA Negative Negative 01/05/2022 2:29 PM DIRECTOR OF MEDICAL STAFF SERVICES [facility]ST[facility] FINAL DIAGNOSIS This patient's sample is negative for HPV DNA. This test was developed and its performance characteristics determined by the [facility], Molecular Diagnostics Laboratory. It has not been cleared or approved by the FDA. The laboratory is regulated under CLIA as qualified to perform high-complexity testing. This test is used for clinical purposes. It should not be regarded as investigational or for research. METHODOLOGY: The Sweetie Alejandra 4800 system uses automated extraction, simultaneous amplification of HPV (L1 region) and beta-globin, followed by real time detection of fluorescent labeled HPV and beta globin using specific oligonucleotide probes. The test specifically identifies types HPV 16 DNA and HPV 18 DNA while concurrently detecting the rest of the high risk types (31, 33, 35, 39, 45, 51, 52, 56, 58, 59, 66 or 68). COMMENTS: This test is not intended for use as a screening device for woman under age 30 with normal cervical cytology. Results should be correlated with cytologic and histologic findings. Close clinical followup is recommended. 01/05/2022 2:29 PM DIRECTOR OF MEDICAL STAFF SERVICES [facility]ST[facility] Brushing CERVIX UTERI STRUCTURE / Unknown Non-blood Collection / Unknown 12/29/2021 4:07 PM DIRECTOR OF MEDICAL STAFF SERVICES 01/05/2022 8:40 AM DIRECTOR OF MEDICAL STAFF SERVICES us Vladimir Nunes PA-C LAB - BLOOD ORDERABLES Final Result [facility] [address] [facility], [address] [id number], [facility] [phone] * Basic metabolic panel (06/15/2019 6:40 PM CDT) Sodium 137 136 - 145 mmol/L 06/15/2019 7:08 PM CDT [facility] Potassium 4.0 3.5 - 5.0 mmol/L 06/15/2019 7:08 PM CDT [facility] Chloride 103 98 - 107 mmol/L 06/15/2019 7:08 PM CDT [facility] Carbon Dioxide (CO2) 26 22 - 31 mmol/L 06/15/2019 7:08 PM CDT [facility] Anion Gap 8 5 - 18 mmol/L 06/15/2019 7:08 PM CDT [facility] Glucose 87 70 - 125 mg/dL 06/15/2019 7:08 PM CDT [facility] Calcium 9.5 8.5 - 10.5 mg/dL 06/15/2019 7:08 PM CDT [facility] Urea Nitrogen 9 8 - 22 mg/dL 06/15/2019 7:08 PM CDT [facility] Creatinine 0.63 0.60 - 1.10 mg/dL 06/15/2019 7:08 PM CDT [facility] GFR Estimate If Black >60 >60 mL/min/1.7 3m2 06/15/2019 7:08 PM CDT [facility] GFR Estimate >60 >60 mL/min/1.7 2 06/15/2019 7:08 PM CDT [facility] Blood specimen (specimen) VAD(CVC, PICC) / Unknown 06/15/2019 6:40 PM CDT 06/15/2019 6:49 PM CDT Narrative [facility] - 06/15/2019 7:08 PM CDT Fasting Glucose reference range is 70-99 mg/dL per [place] Diabetes Association (ADA) guidelines. us Katie Mares MD LAB - BLOOD ORDERABLES Final Res ult Performing Organization Address [facility]/ZIP Co de Phone Number [facility] [address] [address], [facility] [address] [address] * HIV Antigen Antibody Combo (01/16/2019 5:24 PM DIRECTOR OF MEDICAL STAFF SERVICES) [facility] HIV Antigen Antibody Combo Negative Negative 01/16/2019 10:27 PM DIRECTOR OF MEDICAL STAFF SERVICES [facility] Blood specimen (specimen) Venipuncture / Unknown 01/16/2019 5:24 PM DIRECTOR OF MEDICAL STAFF SERVICES 01/16/2019 9:29 PM DIRECTOR OF MEDICAL STAFF SERVICES Narrative [facility] - 01/16/2019 10:27 PM DIRECTOR OF MEDICAL STAFF SERVICES Method is Denson HIV Ag/Ab for the detection of HIV p24 antigen, HIV-1 antibodies and HIV-2 antibodies. us Salvatore Stanton MD LAB - BLOOD ORDERABLES Final Res ult Performing Organization Address [facility]/ZIP Co de Phone Number [facility] [address] [address], [facility] [address] [address] from Last 3 Months or Most Recently Relevant to Health Maintenance Insurance [facility]
--- OUTSIDE RECORDS SUMMARY | 2024-04-17 10:51 | XMS_ITS | Clinical Summary ---
Author Organization [facility] Address [address] [place] [address] Care Team Providers Care Vp Strategic Partnerships Name Role Phone Pcp, No Primary Care Provider Unavailabl e Allergies Active Allergy Reactions Criticality Noted Date Comments Nickel *Unknown - Follow up needed,Hives High Medications Cetirizine (ZyrTEC) 10 mg cap Take 10 mg by mouth once daily if needed. Active dextroamphetami ne-amphetamine (ADDERALL XR) 15 mg Extended-Releas e capsule Take 15 mg by mouth once daily. 12/08/2022 Active PARoxetine (PAXIL) 30 mg tablet Take 30 mg by mouth once daily. Active fluticasone (50 mcg per actuation) nasal solution (FLONASE)Indica tions:Headache syndrome Inhale 2 Sprays to both nostrils once daily. 16 g 04/19/2023 Active famotidine (PEPCID) 20 mg tabletIndicatio ns:Abdominal pain, LUQ (left upper quadrant) Take 1 [...] is your housing situation today? 1 04/19/2023 Utilities Answer Date Recorded Do you have trouble paying f or utilities (for example, heat, electricity, water, phone)? 1 04/19/2023 Comments Unknown Sex and Gender Information Value Date Recorded Sex Assigned at Not on file Legal Sex Female 12:51 PM CDT Gender Identity Not on file Sexual Orientation Not on file Obstetrics History Last Filed Vital Signs Vital Sign Reading Time Taken Comments Blood Pressure 122/82 04/19/2023 12:51 PM NOTCH GRINDER Pulse 80 04/19/2023 12:51 PM NOTCH GRINDER Temperature - - Respiratory Rate - - Oxygen Saturation 99% 04/19/2023 12:51 PM NOTCH GRINDER Inhaled Oxygen Concentration - - Weight 74.2 kg (163 lb 8 oz) 04/19/2023 12:51 PM NOTCH GRINDER Height - - Body Mass Index - [...] Tdap Completed 11/11/2018 Pneumococcal series for age 6-49 Aged Out No longer eligible based on patient's age to complete this topic Insurance MEDICAID Care Teams Vp Strategic Partnerships Relationship Specialty Start Date End Date Pcp, No . PCP - General 10/14/19
--- OUTSIDE RECORDS SUMMARY | 2024-04-17 10:51 | XMS_ITS | Encounter Summary ---
Author Organization [place] Address [address] [facility] [place] [address] Care Team Providers Care Talent Development Director Name Role Phone Noe Amin MD Primary Care Provider + [phone] Noe Amin MD Unavailable [phone] Maude Rendon NP Unavailable [phone] Noe Amin MD Unavailable [phone] Clinic - [facility] Unavailable Encounter Details Date Type Department Care Team (Late st Contact Info) Description 05/27/2019 Records - [address] [address] Leann Dimas Social History Tobacco Use Types Packs/Day Years Used Date Smoking Tobacco: Never Assessed Comments Unknown Sex and Gender Information Value Date Recorded Sex Assigned at Not on file Legal Sex Female 9:49 PM CDT Gender Identity Not on file Sexual Orientation Not on file documented as of this encounter Progress Notes * Leann Dimas - 05/27/2019 11:00 AM CDT Attempted to call patient 3x. Phone is off and went straight to voicemail. Able to leave 1 voicemail and after that mailbox was full. Also attempted her . No answer. * Gracy Hernandez MD - 05/27/2019 11:00 AM CDT This encounter was created in error - please disregard. documented in this encounter Plan of Treatment Not on file documented as of this encounter Visit Diagnoses Not on filedocumented in this encounter Care Teams Talent Development Director Relationship Specialty Start Date End Date Noe Amin MD PCP - General Family Practice 05/03/17 12/11/21 Noe Amin MD Assigned PCP 07/27/20 06/03/22 [place] [address] [place] [address] Assigned PCP 06/04/22 08/03/22 Noe Amin MD [address] [place] [address] Assigned PCP 08/04/22 03/06/23 [facility] - [address] [address] Assigned PCP 03/07/23 01/03/24 documented as of this encounter
--- OUTSIDE RECORDS SUMMARY | 2024-04-17 10:51 | XMS_ITS | Encounter Summary ---
Author Organization [facility] Address [address] [place] [address] Care Team Providers Care Ferry Operator Name Role Phone Solomon Glasgow MD Primary Care Provider [phone] Encounter Details Date Type Department Care Team (Late st Contact Info) Description 06/25/2017 Correspondence None No Primary/Referring, Phy REFERRAL AND AUTHORIZATION Social History Tobacco Use Types Packs/Day Years Used Date Smoking Tobacco: Never Assessed Comments Unknown Sex and Gender Information Value Date Recorded Sex Assigned at Not on file Legal Sex Female 1:16 PM STOCK LIFTER Gender Identity Not on file Sexual Orientation Not on file documented as of this encounter Plan of Treatment Not on file documented as of this encounter Visit Diagnoses Not on filedocumented in this encounter Care Teams Ferry Operator Relationship Specialty Start Date End Date Solomon Glasgow MD [address] [place] [address] PCP - General Internal Medicine 11/26/19 documented as of this encounter
--- OUTSIDE RECORDS SUMMARY | 2024-04-17 10:51 | XMS_ITS | Encounter Summary ---
Author Organization [facility] Address [address] [place] [address] Care Team Providers Care Sales Performance Manager Name Role Phone Solomon Glasgow MD Primary Care Provider [phone] Encounter Details Date Type Department Care Team (Late st Contact Info) Description 06/24/2017 Correspondence [facility] [address] [place] [address], [address] [place], [place] [id number] Argelia Diehl MD INCIDENT REPORT Social History Tobacco Use Types Packs/Day Years Used Date Smoking Tobacco: Never Assessed Comments Unknown Sex and Gender Information Value Date Recorded Sex Assigned at Not on file Legal Sex Female 1:16 PM PALS NURSE Gender Identity Not on file Sexual Orientation Not on file documented as of this encounter Plan of Treatment Not on file documented as of this encounter Visit Diagnoses Not on filedocumented in this encounter Care Teams Sales Performance Manager Relationship Specialty Start Date End Date Solomon Glasgow MD [address] [place] [address] PCP - General Internal Medicine 11/26/19 documented as of this encounter
--- OUTSIDE RECORDS SUMMARY | 2024-04-17 10:51 | XMS_ITS | Clinical Summary ---
Author Organization [facility] Address [address] [address] Phone Care Team Providers Care Cloth Bleaching Supervisor Name Role Phone Unavailable Primary Care Provider Unavailabl e Allergies No known active allergies Medications sertraline (Zoloft) 100 MG tablet Take 100 mg by mouth one time a day. Active amphetamine-dex troamphetamine (Adderall) 15 MG tablet Take 15 mg by mouth one time a day. To avoid insomnia, last daily dose should be taken no less than 6 hours before bed. Active Cetirizine HCl (ZyrTEC Allergy) 10 MG capsule Take by mouth. Active Fluticasone Propionate (FLONASE NA) Instill nasally. Active Social History Tobacco Use Types Packs/Day Years Used Date Smoking Tobacco: Never Smokeless Tobacco: Never Alcohol Use Standard Drinks/Week Comments Not Currently 0 (1 standard drink = 0.6 oz pur e alcohol) Comments Unknown Sex and Gender Information Value Date Recorded Sex Assigned at Not on file Legal Sex Female 4:58 PM CDT Gender Identity Not on file Sexual Orientation Not on file Obstetrics History Last Filed Vital Signs Vital Sign Reading Time Taken Comments Blood Pressure 115/78 09/09/2021 5:04 PM CDT Pulse 104 09/09/2021 5:04 PM CDT Temperature 36.2 C (97.2 F) 09/09/2021 5:04 PM CDT Respiratory Rate 22 09/09/2021 5:04 PM CDT Oxygen Saturation 99% 09/09/2021 5:04 PM CDT Inhaled Oxygen Concentration - - Weight 71.7 kg (158 lb) 09/09/2021 5:04 PM CDT Height 162.6 cm (5' 4) 09/09/2021 5:04 PM CDT Body Mass Index 27.12 09/09/2021 5:04 PM CDT Plan of Treatment Not on file Insurance [employer] [place] [facility]
[2024-04-17 11:19] VITALS: BP 122/83; PULSE 87; RESP 18; TEMP 36.5; O2SAT 97; BMI 31.4
--- NOTE | 2024-04-17 11:25 | ED.NURSE ---
Patient decides she will come back if pain gets worse as she states she has not sleep all night and does not want to be in ED long.
--- OUTSIDE RECORDS SUMMARY | 2024-04-17 11:29 | XMS_ITS | Encounter Summary ---
Author Organization [employer] Address [address] [place] [address] Care Team Providers Care Screen Printing Machine Loader Unloader Name Role Phone Solomon Glasgow MD Primary Care Provider Encounter Details Date Type Department Care Team (Late st Contact Info) Description 06/24/2017 Correspondence [facility] [address] [place] [address], [address] [place], [place] [id number] Argelia Diehl MD INCIDENT REPORT Social History Tobacco Use Types Packs/Day Years Used Date Smoking Tobacco: Never Assessed Comments Unknown Sex and Gender Information Value Date Recorded Sex Assigned at Not on file Legal Sex Female 1:16 PM OFFSET LABEL REWINDER Gender Identity Not on file Sexual Orientation Not on file documented as of this encounter Plan of Treatment Not on file documented as of this encounter Visit Diagnoses Not on filedocumented in this encounter Care Teams Screen Printing Machine Loader Unloader Relationship Specialty Start Date End Date Solomon Glasgow MD [address] [place] [address] PCP - General Internal Medicine 11/26/19 documented as of this encounter
--- OUTSIDE RECORDS SUMMARY | 2024-04-17 11:29 | XMS_ITS | Clinical Summary ---
Author Organization [place] Address [address] [facility] [place] [address] Care Team Providers Care Ultrasonic Cleaner Name Role Phone Unavailable Primary Care Provider Unavailabl e Allergies Active Allergy Reactions Criticality Noted Date Comments Nickel Unknown 08/15/2018 Medications fluticasone (FLONASE) 50 MCG/ACT nasal spray [place] 1-2 sprays into both nostrils daily 1 [...] this topic Medical Devices Implanted Type Area Road Tester Device Identifier Shelf Expiration Date Model / Serial / Lot Imp Sinus Propel Mometasone Fuorate 370mccg 23mm [id number] Implanted:Qty: 1 on 08/19/2018 Other Left: Nose INTERSECT ENT 08/31/2019 [id number] / / [id number] Imp Sinus Propel Mometasone Fuorate 370mccg 23mm [id number] Implanted:Qty: 1 on 08/19/2018 Other Right: Nose INTERSECT ENT 08/31/2019 [id number] / / [id number] Procedures Procedure Name Priority Date/Time Associated Diagnosis Comments LIPID PROFILE Routine 12/29/2021 4:11 PM APPLICATION INFRASTRUCTURE ENGINEER Encounter for screening for lipoid disorders GYNECOLOGIC CYTOLOGY Routine 12/29/2021 4:07 PM APPLICATION INFRASTRUCTURE ENGINEER Encounter for screening for malignant neoplasm of cervix HPV HIGH RISK TYPES DNA CERVICAL Routine 12/29/2021 4:07 PM APPLICATION INFRASTRUCTURE ENGINEER Encounter for screening for malignant neoplasm of cervix BASIC METABOLIC PANEL STAT 06/15/2019 6:40 PM CDT HIV ANTIGEN ANTIBODY COMBO STAT 01/16/2019 5:24 PM APPLICATION INFRASTRUCTURE ENGINEER from Last 3 Months or Most Recently Relevant to Health Maintenance Results * (ABNORMAL) Lipid Profile (12/29/2021 4:11 PM APPLICATION INFRASTRUCTURE ENGINEER) Cholesterol 207(H) <200 mg/dL 12/30/2021 1:06 AM APPLICATION INFRASTRUCTURE ENGINEER [facility] Triglycerides 53 <150 mg/dL 12/30/2021 1:06 AM APPLICATION INFRASTRUCTURE ENGINEER [facility] Direct Measure HDL 52 >=50 mg/dL 12/30/2021 1:06 AM APPLICATION INFRASTRUCTURE ENGINEER [facility] LDL Cholesterol Calculated 144(H) <=100 mg/dL 12/30/2021 1:06 AM APPLICATION INFRASTRUCTURE ENGINEER [facility] Non HDL Cholesterol 155(H) <130 mg/dL 12/30/2021 1:06 AM APPLICATION INFRASTRUCTURE ENGINEER [facility] Blood STRUCTURE OF RIGHT UPPER LIMB / Unknown Client Draw / Unknown 12/29/2021 4:11 PM APPLICATION INFRASTRUCTURE ENGINEER 12/29/2021 8:01 PM APPLICATION INFRASTRUCTURE ENGINEER Narrative [facility] - 12/30/2021 1:06 AM APPLICATION INFRASTRUCTURE ENGINEER Cholesterol Desirable: <200 mg/dL Triglycerides Normal: Less [...] LAB - BLOOD ORDERABLES Final Result LABORATORY [facility] [address] [facility], [address] [place] [address], [facility] [phone] * (ABNORMAL) Gynecologic Cytology (PAP) (12/29/2021 4:07 PM APPLICATION INFRASTRUCTURE ENGINEER) Interpretation Atypical squamous cells of undetermined significance (ASC-US)(A) 01/03/2022 2:44 PM APPLICATION INFRASTRUCTURE ENGINEER LABORATORY Comment Papanicolaou Test Limitations: Cervical cytology is a screening test with limited sensitivity, and regular screening is critical for cancer prevention. Pap tests are primarily effective for the diagnosis/preven tion of squamous cell carcinoma, not adenocarcinoma or other cancers. 01/03/2022 2:44 PM APPLICATION INFRASTRUCTURE ENGINEER LABORATORY Specimen Adequacy Satisfactory for evaluation, endocervical/tra nsformation zone component present 01/03/2022 2:44 PM APPLICATION INFRASTRUCTURE ENGINEER [facility] Clinical Information none 01/03/2022 2:44 PM APPLICATION INFRASTRUCTURE ENGINEER [facility] LMP/Menopause Date 12/08/2021 01/03/2022 2:44 PM APPLICATION INFRASTRUCTURE ENGINEER [facility] Reflex Testing Yes regardless of result 01/03/2022 2:44 PM APPLICATION INFRASTRUCTURE ENGINEER [facility] Previous Abnormal? Yes 01/03/2022 2:44 PM APPLICATION INFRASTRUCTURE ENGINEER [facility] Previous Abnormal Diagnosis 12/12/2020 01/03/2022 2:44 PM APPLICATION INFRASTRUCTURE ENGINEER [facility] Performing Labs The technical component of this testing was completed at [facility] 01/03/2022 2:44 PM APPLICATION INFRASTRUCTURE ENGINEER [facility] Brushing CERVIX UTERI STRUCTURE / Unknown 12/29/2021 4:07 PM APPLICATION INFRASTRUCTURE ENGINEER 01/01/2022 2:18 PM APPLICATION INFRASTRUCTURE ENGINEER us Vladimir CARRILLO Final R esult [facility] [address] [facility] (1st floor, no room number) [place] [address], [facility] [phone] SPECIALTY LABS Specialty Lab [address] [facility], [address] [place] [address], [facility] [phone] * HPV High Risk Types DNA Cervical (12/29/2021 4:07 PM APPLICATION INFRASTRUCTURE ENGINEER) Other HR HPV Negative Negative 01/05/2022 2:29 PM APPLICATION INFRASTRUCTURE ENGINEER [facility] HPV16 DNA Negative Negative 01/05/2022 2:29 PM APPLICATION INFRASTRUCTURE ENGINEER [facility] HPV18 DNA Negative Negative 01/05/2022 2:29 PM APPLICATION INFRASTRUCTURE ENGINEER [facility] FINAL DIAGNOSIS This patient's sample is negative for HPV DNA. This test was developed and its performance characteristics determined by the [facility], Molecular Diagnostics Laboratory. It has not been [...] clinical followup is recommended. 01/05/2022 2:29 PM APPLICATION INFRASTRUCTURE ENGINEER [facility] Brushing CERVIX UTERI STRUCTURE / Unknown Non-blood Collection / Unknown 12/29/2021 4:07 PM APPLICATION INFRASTRUCTURE ENGINEER 01/05/2022 8:40 AM APPLICATION INFRASTRUCTURE ENGINEER us Vladimir Nunes PA-C LAB - BLOOD ORDERABLES Final Result [facility] [address] [facility], [address] [id number], [facility] [phone] * Basic metabolic panel (06/15/2019 6:40 PM CDT) Sodium 137 136 - 145 mmol/L 06/15/2019 7:08 PM CDT [facility] Potassium 4.0 3.5 - 5.0 mmol/L 06/15/2019 7:08 PM CDT [facility] Chloride 103 98 - 107 mmol/L 06/15/2019 7:08 PM CDT [facility] Carbon Dioxide (CO2) 26 22 - 31 mmol/L 06/15/2019 7:08 PM CDT [facility] Anion Gap 8 5 - 18 mmol/L 06/15/2019 7:08 PM CDT [facility] Glucose 87 70 - 125 mg/dL 06/15/2019 7:08 PM CDT [facility] Calcium 9.5 8.5 - 10.5 mg/dL 06/15/2019 7:08 PM CDT [facility] Urea Nitrogen 9 8 - 22 mg/dL 06/15/2019 7:08 PM CDT [facility] Creatinine 0.63 0.60 - 1.10 mg/dL 06/15/2019 7:08 PM CDT [facility] GFR Estimate If Black >60 >60 mL/min/1.7 3m2 06/15/2019 7:08 PM CDT [facility] GFR Estimate >60 >60 mL/min/1.7 2 06/15/2019 7:08 PM CDT [facility] Blood specimen (specimen) VAD(CVC, PICC) / Unknown 06/15/2019 6:40 PM CDT 06/15/2019 6:49 PM CDT Narrative [facility] - 06/15/2019 7:08 PM CDT Fasting Glucose reference range is 70-99 mg/dL per [place] Diabetes Association (ADA) guidelines. us Katie Mares MD LAB - BLOOD ORDERABLES Final Res ult Performing Organization Address [facility]/ZIP Co de Phone Number [facility] [address] [address], [facility] [address] [address] * HIV Antigen Antibody Combo (01/16/2019 5:24 PM APPLICATION INFRASTRUCTURE ENGINEER) [facility] HIV Antigen Antibody Combo Negative Negative 01/16/2019 10:27 PM APPLICATION INFRASTRUCTURE ENGINEER [facility] Blood specimen (specimen) Venipuncture / Unknown 01/16/2019 5:24 PM APPLICATION INFRASTRUCTURE ENGINEER 01/16/2019 9:29 PM APPLICATION INFRASTRUCTURE ENGINEER Narrative [facility] - 01/16/2019 10:27 PM APPLICATION INFRASTRUCTURE ENGINEER Method is Denson HIV Ag/Ab for the detection of HIV p24 antigen, HIV-1 antibodies and HIV-2 antibodies. us Salvatore Stanton MD LAB - BLOOD ORDERABLES Final Res ult Performing Organization Address [facility]/ZIP Co de Phone Number [facility] [address] [address], [facility] [address] [address] from Last 3 Months or Most Recently Relevant to Health Maintenance Insurance [facility]
--- OUTSIDE RECORDS SUMMARY | 2024-04-17 11:29 | XMS_ITS | Encounter Summary ---
Author Organization [employer] Address [address] [place] [address] Care Team Providers Care Hazmat Tanker Driver Name Role Phone Solomon Glasgow MD Primary Care Provider [phone] Encounter Details Date Type Department Care Team (Late st Contact Info) Description 06/25/2017 Correspondence None No Primary/Referring, Phy REFERRAL AND AUTHORIZATION Social History Tobacco Use Types Packs/Day Years Used Date Smoking Tobacco: Never Assessed Comments Unknown Sex and Gender Information Value Date Recorded Sex Assigned at Not on file Legal Sex Female 1:16 PM BLANKING PRESS OPERATOR Gender Identity Not on file Sexual Orientation Not on file documented as of this encounter Plan of Treatment Not on file documented as of this encounter Visit Diagnoses Not on filedocumented in this encounter Care Teams Hazmat Tanker Driver Relationship Specialty Start Date End Date Solomon Glasgow MD [address] [place] [address] PCP - General Internal Medicine 11/26/19 documented as of this encounter
--- OUTSIDE RECORDS SUMMARY | 2024-04-17 11:29 | XMS_ITS | Clinical Summary ---
Author Organization [facility] Address [address] [address] Phone Care Team Providers Care Manager Print Name Role Phone Unavailable Primary Care Provider [...] Plan of Treatment Not on file Insurance [employer] [place] C[employer]
--- OUTSIDE RECORDS SUMMARY | 2024-04-17 11:29 | XMS_ITS | Encounter Summary ---
Author Organization [place] Address [address] [facility] [place] [address] Care Team Providers Care Manual Training Teacher Name Role Phone Noe Amin MD Primary Care Provider + [phone] Noe Amin MD Unavailable [phone] Maude Rendon NP Unavailable [phone] Neo Amin MD Unavailable [phone] Clinic - [facility] Unavailable Encounter Details Date Type Department Care Team (Late st Contact Info) Description 05/27/2019 Records - [address] [address] Leann Dimas Social History Tobacco [...] on filedocumented in this encounter Care Teams Manual Training Teacher Relationship Specialty Start Date End Date Noe Amin MD PCP - General Family Practice 05/03/17 12/11/21 Noe Amin MD Assigned PCP 07/27/20 06/03/22 [place] [address] [place] [address] Assigned PCP 06/04/22 08/03/22 Noe Amin MD [address] [place] [address] Assigned PCP 08/04/22 03/06/23 [facility] - [address] [address] Assigned PCP 03/07/23 01/03/24 documented as of this encounter
--- OUTSIDE RECORDS SUMMARY | 2024-04-17 11:29 | XMS_ITS | Clinical Summary ---
Author Organization [employer] Address [address] [place] [address] Care Team Providers Care Flight Software Test Engineer Name Role Phone Solomon Glasgow MD Primary Care Provider [phone] Source Comments You are receiving this document as you are listed as the primary care provider,follow-up provider, or the patient has been referred to you for consultation.This is in compliance with the Medicare and[facility] EHR Incentive Program,which states Providers who transition their patient to another setting of careor provider of care or refers their patient to another provider of care shouldprovide summary care record for each transition of care or referral. [employer] Allergies Active Allergy Reactions Criticality Noted Date Comments Nickel Hives High 08/15/2018 Medications FLUoxetine (PROZAC) 10 MG capsule 03/22/2020 Active ergocalciferol (DRISDOL) 1.25 MG (75049 UT) capsuleIndicati ons:Vitamin D deficiency (HRC) Take [...] on file Legal Sex Female 1:16 PM GAUGE CHECKER Gender Identity Not on file Sexual Orientation Not on file Last Filed Vital Signs Vital Sign Reading Time Taken Comments Blood Pressure 113/75 04/12/2020 2:52 PM GAUGE CHECKER Pulse 101 04/12/2020 2:52 PM GAUGE CHECKER Temperature - - Respiratory Rate - - Oxygen Saturation - - Inhaled Oxygen Concentration - - Weight 81.2 kg (179 lb) 04/12/2020 2:52 PM GAUGE CHECKER Height 167.6 cm (5' 6) 04/04/2020 2:32 PM GAUGE CHECKER Body Mass Index 28.89 04/04/2020 2:32 PM GAUGE CHECKER Plan of Treatment Health Maintenance Due Date [...] 1/2 AG/AB 4thGEN Negative (Non Reactive) [facility] Comment:HIV-1 p24 Ag and HIV -1/HIV-2 Ab not detected. 06/25/2017 3:34 PM CDT 06/25/2017 3:35 PM CDT Narrative [facility] - 06/25/2017 7:31 PM CDT Performed at [facility], [address] [place] [address] us Argelia Diehl MD LAB_1 Final Result Performing Organization Address [facility] de Phone Number [facility] * HEPATITIS C AB [[id number]] (06/25/2017 3:34 PM CDT) Pathologist [facility] Anti-HCV Negative (Non Reactive) [facility] Comment: Antibodies to HCV not detected. Does not exclude the possibility of exposure to HCV. 06/25/2017 3:34 PM CDT 06/25/2017 3:35 PM CDT Narrative [facility] - 06/25/2017 7:27 PM CDT Performed at [facility], [address] [place] [address] us Argelia Diehl MD LAB_1 Final Result Performing Organization Address [facility] Co de Phone Number [facility] from Last 3 Months or Most Recently Relevant to Health Maintenance Insurance * Guarantor: Phoebe Sherwood Account Type Relation to Patient Date of Phone Billing Address Personal/Family Self 1985 [id number] [place] [address] * Guarantor: Phoebe Sherwood Account Type Relation to Patient Date of Phone Billing Address Personal/Family Self 1985 [address] [id number] [address] [place] [address] CARE MNCARE * Guarantor: Phoebe Sherwood Account Type Relation to Patient Date of Phone Billing Address Workers Comp Self 1985 RET[address]IL [id number] [address] [place] [address] MISC INS WORK COMP WC Care Teams Flight Software Test Engineer Relationship Specialty Start Date End Date Solomon Glasgow MD [address] [place] [address] PCP - General Internal Medicine 11/26/19
--- OUTSIDE RECORDS SUMMARY | 2024-04-17 11:29 | XMS_ITS | Encounter Summary ---
Author Organization [place] Address [address] [place] [address] Care Team Providers Care Tankage Supervisor Name Role Phone Noe Amin MD Primary Care Provider + [phone] Noe Amin MD Unavailable [phone] Maude Rendon FELT HAT POUNCING OPERATOR HAND Unavailable [phone] Noe Amin MD Unavailable [phone] Clinic - [facility] Unavailable Encounter Details Date Type Department Care Team (Late st Contact Info) Description 07/27/2019 Records - [address] [address] Noe Amin MD [address] [place] [address] Social History Tobacco Use Types Packs/Day Years [...] on filedocumented in this encounter Care Teams Tankage Supervisor Relationship Specialty Start Date End Date Noe Amin MD PCP - General Family Practice 05/03/17 12/11/21 Noe Amin MD Assigned PCP 07/27/20 06/03/22 Maude Rendon NP [address] [facility] [place] [place] [address] Assigned PCP 06/04/22 08/03/22 Noe Amin MD [address] [place] [address] Assigned PCP 08/04/22 03/06/23 [facility] - [address] [address] Assigned PCP 03/07/23 01/03/24 documented as of this encounter
--- OUTSIDE RECORDS SUMMARY | 2024-04-17 11:29 | XMS_ITS | Encounter Summary ---
Author Organization [place] Address [address] [facility] [place] [address] Care Team Providers Care Patternmaker Pressure Cast Name Role Phone Noe Amin MD Primary Care Provider + [phone] Noe Amin MD Unavailable [phone] Maude Rendon NP Unavailable [phone] Noe Amin MD Unavailable [phone] [facility] Unavailable Encounter Details Date Type Department Care [...] on filedocumented in this encounter Care Teams Patternmaker Pressure Cast Relationship Specialty Start Date End Date Noe Amin MD PCP - General Family Practice 05/03/17 12/11/21 Noe Amin MD Assigned PCP 07/27/20 06/03/22 Maude Rendon NP [address] [facility] [place] [address] Assigned PCP 06/04/22 08/03/22 Noe Amin MD [address] [facility] [address] [facility] [place] [address] Assigned PCP 08/04/22 03/06/23 [facility] [address] [address] Assigned PCP 03/07/23 01/03/24 documented as of this encounter
== END 2024-04-17 11:36 | disposition left against medical advice (07) ==
LOC: ED 11:27
DX: Z53.21 Procedure and treatment not carried out due to patient leaving prior to being seen by health care provider (principal)

== ENCOUNTER 2024-12-24 21:30 | Emergency (ER) | payer OTHER, SELFPAY ==
[2024-12-24] VITALS (17 sets, daily range): BP systolic 107–131; BP diastolic 68–103; PULSE 73–87; RESP 16–22; TEMP 36.8; O2SAT 91–100; BMI 30.1
--- OUTSIDE RECORDS SUMMARY | 2024-12-24 21:32 | XMS_ITS | Clinical Summary ---
Author Organization [employer] Address [address] [place] [address] Care Team Providers Care Campus Recruiting Coordinator Name Role Phone Pcp, No Primary Care Provider Unavailabl e Allergies Active Allergy Reactions Criticality Noted Date Comments Nickel *Unknown - Follow up needed,Hives High Medications Cetirizine (ZyrTEC) 10 mg cap Take 10 mg by mouth once daily if needed. Active fluticasone (50 mcg per actuation) nasal solution (FLONASE)Indicat ions:Headache syndrome Inhale 2 Sprays to both nostrils once daily. 16 g 4 Active dextroamphetamin e-amphetamine (ADDERALL XR) 20 mg Extended-Release capsule Take 1 Capsule by mouth once daily. 5 Active Spravato 84 mg (28 mg x 3) nasal spray 5 Active PARoxetine (PAXIL) 20 mg tablet Take 1 Tablet by mouth once daily. 5 Active montelukast (SINGULAIR) 10 mg tabletIndication s:Eosinophilia, unspecified type Take 1 Tablet (10 mg) by mouth at bedtime. 90 Tablet 5 Active Active Problems Problem Noted Date Diagnosed Date Asthma 03/25/2020 Seasonal allergic rhinitis 03/28/2017 Immunizations Immunization Administration Dates Next Due Tdap 11/11/2018 Social History Tobacco Use Types Packs/Day Years Used Date Smoking Tobacco: Never Passive Smoke Exposure: Past Smokeless Tobacco: Never Tobacco Cessation:Counseling Given: Yes Alcohol Use Standard Drinks/Week Comments Not Currently 0 (1 standard drink = 0.6 oz pur e alcohol) PHQ-2 Answer Date Recorded PHQ-2 TOTAL SCORE 4 08/25/2024 Social Connections Answer Date Recorded Do you often feel lonely or isolated from those around you? 0 08/25/2024 Financial Resource Strain Answer Date R ecorded Difficulty of Paying Living Expenses 3 08/25/2024 Difficulty of Paying Living Expenses Not on file 08/25/2024 Food Insecurity Answer Date Recorded Do you worry your food will run out before you are able to buy more? 1 08/25/2024 Transportation Needs Answer Date Record ed Does lack of transportation keep you from medica l appointments? 1 08/25/2024 Does lack of transportation keep you from work, meetings or getting things that you need? 1 08/25/2024 Housing Stability Answer Date Recorded What is your housing situation today? 1 08/25/2024 Utilities Answer Date Recorded Do you have trouble paying f or utilities (for example, heat, electricity, water, phone)? 1 08/25/2024 Comments No Sex and Gender Information Value Date Recorded Sex Assigned at Not on file Legal Sex Female 12:51 PM CDT Gender Identity Not on file Sexual Orientation Not on file Obstetrics History Last Filed Vital Signs Vital Sign Reading Time Taken Comments Blood Pressure 120/87 08/25/2024 9:40 AM CDT Pulse 92 08/25/2024 9:40 AM CDT Temperature - - Respiratory Rate - - Oxygen Saturation 99% 08/25/2024 9:40 AM CDT Inhaled Oxygen Concentration - - Weight 83 kg (183 lb) 08/25/2024 9:40 AM CDT Height 161.3 cm (5' 3.5) 08/25/2024 9:40 AM CDT Body Mass Index 31.91 08/25/2024 9:40 AM CDT Plan of Treatment Health Maintenance Due Date Last Done Comments Hepatitis B series for 19+ (1 of 3 - 19+ 3-dose series) 02/11/2003 HPV series for age 9-45 (1 - 3-dose SCDM series) 02/11/2011 Influenza Vaccine (#1) 2024 Pap test for age 21-65 12/29/2024 2 (Verified in Care Everywhere or Patient Record) BMI (ht and wt on same day) for age 18+ 08/25/2025 08/25/2024 Depression screening for age 12+ 08/25/2025 08/25/2024 Tetanus booster 11/11/2028 11/11/2018 RSV vaccine for adults or (1 - 1-dose 75+ series) 02/11/2059 HIV for age 15-65 Completed 08/25/2024 Hepatitis C screening for age 18-79 Completed 08/25/2024 Pneumococcal series for age 6-49 Aged Out No longer eligible based on patient's age to complete this topic Procedures Procedure Name Priority Date/Time Associated Diagnosis Comments ANTI HIV 1/2 Routine 08/25/2024 10:27 AM CDT Screening for HIV (human immunodeficiency virus) ANTI HCV Routine 08/25/2024 10:27 AM CDT Need for hepatitis C screening test from Last 3 Months or Most Recently Relevant to Health Maintenance Results * ANTI HCV (08/25/2024 10:27 AM CDT) HEPATITIS C ANTIBODY NON-REACTI VE NON-REACT GRAEME [facility] Comment: HCV antibody was non-reactive. There is no laboratory evidence of HCV infection. In most cases, no further action is required. However, if recent HCV exposure is suspected, a test for HCV RNA (test code 62367) is suggested. For additional information please refer to http://education.[employer]/faq/SDG52c5 (This link is being provided for informational/ educational purposes only.) Blood BLOOD SPECIMEN / Unknown 08/25/2024 10:27 AM CDT 08/25/2024 10:27 AM CDT us Adei Yaakovqra DO SEND OUTS Final Result [facility] [address] [place] [address], [facility] [address] [place] [address] * ANTI HIV 1/2 [52592.0] (08/25/2024 10:27 AM CDT) HIV FINAL INTERPRETATOIN [facility] Comment: HIV Negative HIV-1 antigen and HIV-1/HIV-2 antibodies were not detected. There is no laboratory evidence of HIV infection. HIV AG/AB, 4TH GEN NON-REACT GRAEME NON-REACT GRAEME [facility] Blood BLOOD SPECIMEN / Unknown 08/25/2024 10:27 AM CDT 08/25/2024 10:27 AM CDT Sierrai Yaakovsharron DO SEND OUTS Final Result [facility] [address] [place] [address], [facility] [address] [place] [address] from Last 3 Months or Most Recently Relevant to Health Maintenance Insurance [facility] FAMILY [employer] Care Teams Campus Recruiting Coordinator Relationship Specialty Start Date End Date Pcp, No . PCP - General 10/14/19
--- OUTSIDE RECORDS SUMMARY | 2024-12-24 21:32 | XMS_ITS | Encounter Summary ---
Author Organization [employer] Address [address] [place] [address] Care Team Providers Care Department Sales Manager Name Role Phone Solomon Glasgow MD Primary Care Provider Unavail able Encounter Details Date Type Department Care Team (Late st Contact Info) Description 06/25/2017 Correspondence None No Primary/Referring, Phy REFERRAL AND AUTHORIZATION Social History Tobacco Use Types Packs/Day Years Used Date Smoking Tobacco: Never Assessed Comments Unknown Sex and Gender Information Value Date Recorded Sex Assigned at Not on file Legal Sex Female 1:16 PM HOME AGENT Gender Identity Not on file Sexual Orientation Not on file documented as of this encounter Plan of Treatment Not on file documented as of this encounter Visit Diagnoses Not on filedocumented in this encounter Care Teams Department Sales Manager Relationship Specialty Start Date End Date Solomon Glasgow MD PCP - General Internal Medicine 11/26/19 documented as of this encounter
--- OUTSIDE RECORDS SUMMARY | 2024-12-24 21:32 | XMS_ITS | Clinical Summary ---
Author Organization [facility] Address [address] [facility] [place] [address] Care Team Providers Care Clearing House Clerk Name Role Phone Unavailable Primary Care Provider Unavailabl e Allergies Active Allergy Reactions Criticality Noted Date Comments Nickel Unknown 08/15/2018 Medications fluticasone (FLONASE) 50 MCG/ACT nasal spray [place] 1-2 sprays into both nostrils daily 1 [...] 03/28/2017 Immunizations Immunization Administration Dates Next Due TDAP (Adacel,Boostrix) 11/11/2018 [...] 11/30/2020 1:38 PM CDT Plan of Treatment Not on file Medical Devices Implanted Type Area Large Sheetfed Press Operator Device Identifier Shelf Expiration Date Model / Serial / Lot Imp Sinus Propel Mometasone Fuorate 370mccg 23mm [id number] Implanted:Qty: 1 on 08/19/2018 Other Left: Nose INTERSECT ENT 08/31/2019 [id number] / / [id number] Imp Sinus Propel Mometasone Fuorate 370mccg 23mm [id number] Implanted:Qty: 1 on 08/19/2018 Other Right: Nose INTERSECT ENT 08/31/2019 [id number] / / [id number] [facility] Check
--- OUTSIDE RECORDS SUMMARY | 2024-12-24 21:32 | XMS_ITS | Encounter Summary ---
Author Organization [facility] Address [address] [place] [address] Care Team Providers Care Hr Systems Analyst Name Role Phone Noe Amin MD Primary Care Provider + [phone] Noe Amin MD Unavailable [phone] Maude Rendon VACUUM CONDITIONER OPERATOR Unavailable [phone] Noe Amin MD Unavailable [phone] Clinic - [facility] Unavailable Encounter Details Date Type Department Care Team (Late st Contact Info) Description 07/27/2019 Records - [address] [address] Noe Amin MD [address] [place] [address] Social History Tobacco Use Types Packs/Day Years [...] on filedocumented in this encounter Care Teams Hr Systems Analyst Relationship Specialty Start Date End Date Noe Amin MD PCP - General Family Practice 05/03/17 12/11/21 Noe Amin MD Assigned PCP 07/27/20 06/03/22 Maude Rendon NP [address] [facility] [address] Assigned PCP 06/04/22 08/03/22 Noe Amin MD [address] [place] [address] Assigned PCP 08/04/22 03/06/23 [facility] - [address] [address] Assigned PCP 03/07/23 01/03/24 documented as of this encounter
--- OUTSIDE RECORDS SUMMARY | 2024-12-24 21:32 | XMS_ITS | Encounter Summary ---
Author Organization [facility] Address [address] [facility] [place] [address] Care Team Providers Care Dynamometer Tester Engine Name Role Phone Noe Amin MD Primary Care Provider + [phone] Noe Amin MD Unavailable [phone] Maude Rendon NP Unavailable [phone] Noe Amin MD Unavailable [phone] [facility] Unavailable Encounter Details Date Type Department [...] on filedocumented in this encounter Care Teams Dynamometer Tester Engine Relationship Specialty Start Date End Date Noe Amin MD PCP - General Family Practice 05/03/17 12/11/21 Noe Amin MD Assigned PCP 07/27/20 06/03/22 Maude Rendon NP [address] [place] [address] Assigned PCP 06/04/22 08/03/22 Noe Amin MD [address] [facility] [place] [address] Assigned PCP 08/04/22 03/06/23 [facility] [place] [address] [address] Assigned PCP 03/07/23 01/03/24 documented as of this encounter
--- OUTSIDE RECORDS SUMMARY | 2024-12-24 21:32 | XMS_ITS | Clinical Summary ---
Author Organization [facility] Address [address] [place] [address] Care Team Providers Care Social Media Content Manager Name Role Phone Solomon Glasgow MD Primary Care Provider Unavail able Source Comments You are receiving this document as you are listed as the primary care provider,follow-up provider, or the patient has been referred to you for consultation.This is in compliance with the Medicare andMedicaid EHR Incentive Program,which states Providers who transition their patient to another setting of careor provider of care or refers their patient to another provider of care shouldprovide summary care record for each transition of care or referral. 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 Gender Identity Not on file Sexual Orientation Not on file Last Filed Vital Signs Vital Sign Reading Time Taken Comments Blood Pressure 113/75 04/12/2020 2:52 PM SHUTTLE BUGGY OPERATOR Pulse 101 04/12/2020 2:52 PM SHUTTLE BUGGY OPERATOR Temperature - - Respiratory Rate - - Oxygen Saturation - - Inhaled Oxygen Concentration - - Weight 81.2 kg (179 lb) 04/12/2020 2:52 PM SHUTTLE BUGGY OPERATOR Height 167.6 cm (5' 6) 04/04/2020 2:32 PM SHUTTLE BUGGY OPERATOR Body Mass Index 28.89 04/04/2020 2:32 PM SHUTTLE BUGGY OPERATOR Plan of Treatment Health Maintenance Due Date Last Done Comments Cervical Cancer Screening Due 1985 Mammogram 1985 Adult Preventive Visit 02/11/2002 HepB Vaccine (1) 02/11/2003 HPV Vaccine (1 - 3-dose SCDM series) 02/11/2011 COVID-19 Vaccine ( - 2023-2 5 season) 2024 Influenza Vaccine (#1) 2024 DTaP/Tdap/Td Vaccine (2 - Tdap) 11/11/2028 9 Zoster/Shingles Vaccine (1 of 2) 02/11/2034 HIV Screening (Preventive Services) Completed 06/25/2017 Hep C Screening (Preventive Services) Completed 06/25/2017 HepA Vaccine Aged Out No longer eligi ble based on patient's age to complete this topic Hib Vaccine Aged Out No longer eligi ble based on patient's age to complete this topic IPV (Polio) Vaccine Aged Out No longe r eligible based on patient's age to complete this topic MCV4 Vaccine Aged Out No longer eligi ble based on patient's age to complete this topic Meningococcal B Vaccine Aged Out No l onger eligible based on patient's age to complete this topic Pneumococcal Vaccine Aged Out No long er eligible based on patient's age to complete this topic Procedures Procedure Name Priority Date/Time Associated Diagnosis Comments HIV 1/2 AG/AB 4TH GEN Routine 06/25/2017 3:34 PM CDT Exposure to blood or body fluid Work related injury HEPATITIS C ANTIBODY, WITH REFLEX (ANTI-HCV) Routine 06/25/2017 3:34 PM CDT Exposure to blood or body fluid Work related injury from Last 3 Months or Most Recently Relevant to Health Maintenance Results * HIV 1/2 Ag/Ab 4th Generation (06/25/2017 3:34 PM CDT) HIV 1/2 AG/AB 4thGEN Negative (Non Reactive) [facility] Comment:HIV-1 p24 Ag and HIV -1/HIV-2 Ab not detected. 06/25/2017 3:34 PM CDT 06/25/2017 3:35 PM CDT Narrative [facility] [employer] - 06/25/2017 7:31 PM CDT Performed at [facility], [address] [place], [place] [id number] Argelia Diehl MD LAB_1 Final Result Performing Organization Address [facility] de Phone Number [facility] [employer] [phone] * HEPATITIS C AB [0982] (06/25/2017 3:34 PM CDT) Pathologist [facility] Anti-HCV Negative (Non Reactive) [facility] Comment: Antibodies to HCV not detected. Does not exclude the possibility of exposure to HCV. 06/25/2017 3:34 PM CDT 06/25/2017 3:35 PM CDT Narrative [facility] - 06/25/2017 7:27 PM CDT Performed at [facility], [address] [place] [address] [place] Argelia Diehl MD LAB_1 Final Result Performing Organization Address [facility] Co de Phone Number [facility] [employer] [phone] from Last 3 Months or Most Recently Relevant to Health Maintenance Insurance * Guarantor: Phoebe Sherwood Account Type Relation to Patient Date of Phone Billing Address Personal/Family Self 1985 RET[address]ED [id number] [place] [address] * Guarantor: Phoebe Sherwood Account Type Relation to Patient Date of Phone Billing Address Personal/Family Self 1985 [address] [id number] [address] [place] [address] CARE MNCARE * Guarantor: Phoebe Sherwood Account Type Relation to Patient Date of Phone Billing Address Workers Comp Self 1985 RETURNED MAIL [id number] [place] [address] MISC INS WORK COMP WC Care Teams Social Media Content Manager Relationship Specialty Start Date End Date Solomon Glasgow MD PCP - General Internal Medicine 11/26/19
--- OUTSIDE RECORDS SUMMARY | 2024-12-24 21:32 | XMS_ITS | Patient Health Record ---
Author Organization [facility] Address [address] [place] [address] Care Team Providers Care Slitter Helper Name Role Phone Noe Amin Primary Care Provider Luciaa GANGA Yeboah Unavailable [phone] Reason For Referral No Information Social History Tobacco Use: Social History Observation Description Date Details (start date - stop date) Unknown if ever smoked NA - NA Social History Tobacco Use: Social Info Question Answer Notes Tobacco use/smoking Are you a unknown if ever smoke d Problems Problem Type SNOMED Code ICD Code Onset Dates Problem Status W/U Status Risk Notes Problem Multiple polyps of nasal cavity and/or nasal sinus (disorder) (1448303453) Nasal polyps (J33.9) Active confirmed Problem Hypertrophy of nasal turbinates (disorder) (61705224) Nasal turbinate hypertrophy (J34.3) Active confirmed Plan Of Treatment No Information Insurance Providers Payer Name Payer Address Payer Phone Subscriber Number Group Number Insured Name Patient Relationship to Insured Coverage Start Date Coverage End Date enrriquePREFERRE D ONE [address] [facility] [place] [id number] [phone] [id number] Pheobe Sherwood Self - patient is the insured Medical (General) History Surgical History Surgery Date(Month/Year) Bilateral FESS, Bilateral Pa rtial Reduction of Inferior Turbinates JORGE 08/19/2018
--- OUTSIDE RECORDS SUMMARY | 2024-12-24 21:32 | XMS_ITS | Clinical Summary ---
Author Organization [facility] Address [address] [address] Phone Care Team Providers Care Senior Net Web Developer Name Role Phone Unavailable Primary Care Provider [...] Plan of Treatment Not on file Insurance [employer] [place]
--- OUTSIDE RECORDS SUMMARY | 2024-12-24 21:32 | XMS_ITS | Encounter Summary ---
Author Organization [facility] Address [address] [facility] [place] [address] Care Team Providers Care Caravan Park And Camping Ground Manager Name Role Phone Noe Amin MD Primary Care Provider + [phone] Noe Amin MD Unavailable [phone] Maude Rendon NP Unavailable [phone] Noe Amin MD Unavailable [phone] Clinic - [facility] Unavailable Encounter Details Date Type Department Care Team (Late st Contact Info) Description 05/27/2019 Records - [address] [address] Leann Dimas Social History Tobacco [...] on filedocumented in this encounter Care Teams Caravan Park And Camping Ground Manager Relationship Specialty Start Date End Date Noe Amin MD PCP - General Family Practice 05/03/17 12/11/21 Noe Amin MD Assigned PCP 07/27/20 06/03/22 [place] [address] [place] [address] Assigned PCP 06/04/22 08/03/22 Noe Amin MD [address] [place] [address] Assigned PCP 08/04/22 03/06/23 [facility] - [address] [address] Assigned PCP 03/07/23 01/03/24 documented as of this encounter
--- OUTSIDE RECORDS SUMMARY | 2024-12-24 21:32 | XMS_ITS | Encounter Summary ---
Author Organization [facility] Address [address] [place] [address] Care Team Providers Care Expansion Joint Finisher Name Role Phone Solomon Glasgow MD Primary Care Provider Unavail able Encounter Details Date Type Department Care Team (Late st Contact Info) Description 06/24/2017 Correspondence 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
--- NOTE | 2024-12-24 21:55 | CRLHL7_ITS ---
For Patients: As a result of the Cures Act, medical imaging exams and procedure reports are released immediately into your electronic medical record. You may view this report before your referring provider. If you have questions, please contact your health care provider. INDICATION: Chest pain TECHNIQUE: Chest radiograph 2 views COMPARISON: None FINDINGS: Mediastinum: The mediastinum is normal in appearance. The heart silhouette is normal in size and morphology. Lung: Both lungs are unremarkable in appearance. No sign of pleural effusion seen. No pneumothorax is identified. Bone and Soft tissue: Unremarkable for age. IMPRESSION: 1. No acute cardiopulmonary disease is seen. Dictated by: Kevin Gallardo MD @ 12/24/2024 22:50:03 (Electronically Signed)
--- NOTE | 2024-12-24 21:59 | ED_ITS ---
HPI - Chest Pain General Date Seen: 12/24/24 Chief Complaint: Chest Pain Stated Complaint: chest pain, shortness of breath Time Seen by Provider: 12/24/24 21:38 Source: patient Mode of arrival: ambulatory Limitations: no limitations History of Present Illness HPI narrative: Patient is a 39-year-old female presenting to the emergency department for chest pain. She states chest pain has been on and off for several weeks. Describes as a sharp stabbing pain in the middle of her chest. Denies having pain like this prior to the past few weeks. Also states she will have intermittent short ness of breath with it. No history of blood clots. Denies hemoptysis, history of cancer, recent travel, lower extremity swelling, hormone use. This not noticed any fevers or chills. Does states she has been having episodes where she would feel lightheaded also that seem to be random related to the chest pain. Does states she was seen by her primary care provider several months ago for diffuse body weakness and found to have low vitamin B12. She is being treated for this. Takes Adderall and Paxil but otherwise no medications. No history of family heart disease. No history of heart disease in her. No other concerns noted at this time. Denies vision changes, headache, abdominal pain, nausea, vomiting, diarrhea, constipation, dysuria. Related Data Home Medications ?Medication ?Instructions ?Recorded ?Confirmed paroxetine HCl 30 mg tablet (Paxil) 30 mg PO DAILY 04/17/24 brexpiprazole 2 mg tablet (Rexulti) 2 mg PO DAILY 12/1204/17/24 dextroamphetamine-amphetamine ER 1 cap PO DAILY 04/17/24 20 mg 24hr capsule,extend release Allergies Allergy/AdvReac Type Severity Reaction Status Date / Time nickel Allergy Mild Rash Verified 12/24/24 21:49 Review of Systems Status of ROS Reports: 10 or more systems reviewed and unremarkable except as noted in History and below [facility] PFS Surgical History History of nasal polypectomy ?Z98.890 - Other specified postprocedural states (ICD-10) ?Z87.09 - Personal history of other diseases of the respiratory system (ICD- 10) Social History Smoking Status: Never smoker Do you use any of these nicotine containing products: None Second hand tobacco smoke exposure: No How often do you have a drink containing alcohol: 2-4 times a month How many standard drinks containing alcohol do you have on a typical day: 3 or 4 How often do you have six or more drinks on one occasion: Less than monthly AUDIT-C Alcohol total score: 4 Non-prescribed substance use: marijuana (any form) service: No Exam Narrative Exam Narrative: Const: Well-nourished, Well-developed, in mild distress Eyes: PERRL, no conjunctival injection, and symmetrical lids HENT: Atraumatic external nose and ears. Moist mucous membranes. Neck: Symmetric, trachea midline, No thyromegaly. CVS: RRR, No murmurs or gallops. Peripheral pulses 2+ and equal in all extremities RESP: Unlabored respiratory effort. Clear to auscultation bilaterally. GI: Nontender/Nondistended, No rebound or guarding. MSK:Extremities w/o deformity, Normal Active ROM Skin: Warm, Dry. No rashes or lesions. Neuro: Normal Muscle tone, No focal neurological deficits. Psych: Awake, Alert, & Oriented x3. Appropriate mood and affect. Const Vital Signs, click to edit/add: Vital Signs - 24 hr 12/24/24 21:44 12/24/24 21:52 12/24/24 22:08 Temperature 98.2 F Pulse Rate 87 Pulse Rate [Right Pulse Oximeter] 77 84 Respiratory Rate 16 16 20 Blood Pressure Blood Pressure [Right Upper Arm] 121/84 131/103 H Pulse Oximetry 98 100 91 Oxygen Delivery Method Room Air Room Air 12/24/24 22:09 12/24/24 22:15 12/24/24 22:22 Temperature Pulse Rate Pulse Rate [Right Pulse Oximeter] Respiratory Rate 20 20 20 Blood Pressure 128/86 114/81 Blood Pressure [Right Upper Arm] Pulse Oximetry Oxygen Delivery Method Course Vital Signs Vital signs: Initial Vital Signs Temperature 98.2 F 12/24/24 21:44 Temperature Source Temporal Artery Scan 12/24/24 21:44 Pulse Rate 77 12/24/24 21:44 Pulse Rhythm Regular 12/24/24 21:44 Pulse Strength 3+ Normal 12/24/24 21:44 Respiratory Rate 16 12/24/24 21:44 Blood Pressure 121/84 12/24/24 21:44 Blood Pressure Mean 96 12/24/24 21:44 Blood Pressure Position Sitting 12/24/24 21:44 Pulse Oximetry 98 12/24/24 21:44 Oxygen Delivery Method Room Air 12/24/24 21:44 Vital Signs Temperature 98.2 F 12/24/24 21:44 Pulse Rate 77 12/24/24 21:44 Respiratory Rate 16 12/24/24 21:44 Blood Pressure 121/84 12/24/24 21:44 Pulse Oximetry 98 12/24/24 21:44 Oxygen Delivery Method Room Air 12/24/24 21:44 Temperature 98.2 F 12/24/24 21:44 Pulse Rate 87 12/24/24 22:08 Respiratory Rate 20 12/24/24 22:22 Blood Pressure 114/81 12/24/24 22:22 Pulse Oximetry 91 12/24/24 22:08 Oxygen Delivery Method Room Air 12/24/24 21:52 MDM - Chest Pain MDM Narrative Medical decision making narrative: Patient is a 39-year-old female presenting for chest pain and shortness of breath. The differential diagnosis of chest pain is broad and includes common etiologies such as musculoskeletal strain, GERD, pneumonia, etc. More serious etiologies considered include PE, coronary artery disease, pneumothorax, aortic dissection, aortic aneurysm. She is PERC negative and PE can not be ruled out. Will do EKG troponin to look for signs of cardiac abnormalities. I have low concern for aortic dissection or aortic aneurysm. Will do chest x-ray to look for signs pneumothorax or pneumonia. Patient's lab work returned showing no acute concerning abnormalities. Troponin within normal limits. Considering how long she has been having this chest pain do not believe repeat troponin is necessary. Her hemoglobin within normal limits and a I have no signs of macrocytic anemia. EKG interpreted by myself shows no acute concerning abnormalities. Chest x-ray interpreted by myself and the radiologist shows no concerning abnormalities. Viral swabs returned showing no acute concerning abnormalities. She is doing well at this time and is safe for discharge. She is agreeable to this plan. Lab Data Labs: Lab Results 12/24/24 Range/Units 22:02 WBC 8.53 (4.50-11.00) K/uL RBC 4.73 (4.00-5.20) m/uL Hgb 14.7 (12.0-16.0) gm/dL Hct 43.1 (33.0-51.0) % MCV 91 (80-100) fL MCH 31 (26-34) pg MCHC 34 (32-36) gm/dL RDW Coeff of Sebastian 12.3 (11.5-15.5) % Plt Count 282 (140-440) K/uL Neut % (Auto) 57.6 (42.0-72.0) % Lymph % (Auto) 29.7 (20-44) % [place] % (Auto) 6.2 (0.0-11.0) % Eos % (Auto) 5.6 (0.0-7.0) % Baso % (Auto) 0.8 (0.0-3.0) % Neut # (Auto) 4.91 (1.7-7.0) K/uL Lymph # (Auto) 2.53 (0.90-2.90) K/uL [place] # (Auto) 0.50 (0.00-0.90) K/UL Eos # (Auto) 0.48 (0.00-0.50) K/uL Baso # (Auto) 0.07 (0.00-0.30) K/uL Abs Immat Gran (auto) 0.01 (0.00-0.30) K/uL Imm/Tot Granulo (auto) 0.1 % Sodium 134 L (135-149) mmol/L Potassium 3.3 L (3.6-5.1) mmol/L Chloride 97 (96-114) mmol/L Carbon Dioxide 23 (20-32) mmol/L Anion Gap 14 (7-15) mEq/L BUN 13 (5-24) mg/dL Creatinine 0.6 (0.5-1.5) mg/dL Estimated Creat Clear 103.10 Estimated GFR 116 ml/min Glucose 97 (60-115) mg/dL Calcium 9.4 (8.4-10.6) mg/dL Magnesium 2.0 (1.5-2.6) mg/dL Troponin I < 0.01 (0.01-0.04) ng/mL SARS-CoV-2 (PCR) Negative SARS-CoV-2 (Negative) Influenza Type A (PCR) Negative PCR FLU A (Negative) Influenza Type B (PCR) Negative PCR FLU B (Negative) RSV (PCR) Negative PCR RSV (Negative) Imaging Data Chest x-ray: Attestation: I have reviewed the pertinent imaging results. Radiologist's impression: 1. No acute cardiopulmonary disease is seen. Dictated by: Kevin Gallardo MD @ 12/24/2024 22:50:03 ECG Data Attestation: I personally reviewed and interpreted this ECG as follows: Prior ECG tracings: available for review Interpretation: Normal sinus rhythm with a rate of 81 beats per minute, normal intervals, normal axis, no ST or T-wave abnormalities. Appears similar previous EKGs on file. Discharge Plan Discharge Clinical Impression: Atypical chest pain Patient Disposition: Home, Self-Care Condition: Stable Instructions: Noncardiac Chest Pain (ED) Additional Instructions: I am unsure what exactly is causing her pain but I do not see any emergent issues. I recommend following up with the primary care provider. Return to emergency department for new worsening symptoms. Take Tylenol and ibuprofen for pain. Prescriptions: No Action dextroamphetamine-amphetamine 20 mg capsule,extended release 24hr 1 cap PO DAILY Rexulti 2 mg tablet 2 mg PO DAILY paroxetine HCl [Paxil] 30 mg tablet 30 mg PO DAILY Follow Up/Referrals: Provider,Not a Local [Primary Care Provider, Family Practice] Stand Alone Forms: [employer] Info Instructions
[2024-12-24 22:10] LABS: Hematocrit* 43.1 % (33.0-51.0); Hemoglobin* 14.7 gm/dL (12.0-16.0); Immature Granulocytes Abs Auto 0.01 K/uL (0.00-0.30); Immature Granulocytes Pct Auto 0.1 %; Lymphocytes Absolute Auto 2.53 K/uL (0.90-2.90); Mean Corpuscular HGB Conc 34 gm/dL (32-36); Mean Corpuscular Hemoglobin 31 pg (26-34); Mean Corpuscular Volume 91 fL (80-100); RDW Coefficient of Variation % 12.3 % (11.5-15.5); Red Blood Count* 4.73 m/uL (4.00-5.20); White Blood Count* 8.53 K/uL (4.50-11.00)
[2024-12-24 22:23] LABS: Slide Review Reflex No
[2024-12-24 22:25] LABS: Chloride* 97 mmol/L (96-114); Potassium* 3.3 mmol/L (3.6-5.1); Sodium* 134 mmol/L (135-149)
[2024-12-24 22:27] LABS: Blood Urea Nitrogen* 13 mg/dL (5-24); Creatinine* 0.6 mg/dL (0.5-1.5); Est. Creatinine Clearance* 103.10; Estimated Glomerular Filt Rate 116 ml/min
[2024-12-24 22:28] LABS: Anion Gap 14 mEq/L (7-15); Calcium* 9.4 mg/dL (8.4-10.6); Carbon Dioxide* 23 mmol/L (20-32); Glucose* 97 mg/dL (60-115)
[2024-12-24 23:24] LABS: PCR FLU A Negative PCR FLU A (Negative); PCR FLU B Negative PCR FLU B (Negative); PCR RSV Negative PCR RSV (Negative); SARS PCR* Negative SARS-CoV-2 (Negative)
== END 2024-12-24 23:51 | disposition home or self-care (01) ==
PROVIDERS: Emergency Provider Student in an Organized Health Care Education/Training Program
DX: R07.89 Other chest pain (principal); R06.02 Shortness of breath; Z79.899 Other long term (current) drug therapy
CPT/HCPCS: 36415; 71046; 80048; 83735; 84484; 85025; 87631; 93005; 99284; 99285